=== PATIENT | female | born 1970 | race Caucasian/White ===

== ENCOUNTER → 2016-05-30 | Outpatient (CLI) | payer MEDICARE ==
[2016-05-30 12:41] LABS: ALT 33 U/L (9-52); AST 24 U/L (14-36); Alkaline Phosphatase 121 U/L (38-126); Anion Gap 10 mmol/L; Blood Urea Nitrogen 16 mg/dL (7-17); Calcium 9.4 mg/dL (8.4-10.2); Carbon Dioxide 29 mmol/L (22-30); Chloride 108 mmol/L (98-107); Glucose 98 mg/dL (74-99); Non-African American GFR(MDRD) >60 (>60 ml/min/1.73 sqM); Potassium 5.1 mmol/L (3.5-5.1); Sodium 147 mmol/L (137-145); Total Bilirubin 0.4 mg/dL (0.2-1.3); Total Protein 7.3 g/dL (6.3-8.2)
[2016-05-30 12:57] LABS: Prolactin 6.6 ng/mL (3.0-18.6)
== END | disposition home or self-care (01) ==
LOC: LABWHC1 12:02
PROVIDERS: ATTEND Internal Medicine Endocrinology, Diabetes & Metabolism
DX: E03.8 Other specified hypothyroidism (principal); E21.0 Primary hyperparathyroidism; R53.83 Other fatigue
CPT/HCPCS: 36415; 80053; 82306; 82533; 83970; 84146; 84443

== ENCOUNTER → 2016-05-31 | Outpatient (CLI) | payer MEDICARE | END | disposition home or self-care (01) | LOC: LABWHC1 11:24 | PROVIDERS: ATTEND Internal Medicine Endocrinology, Diabetes & Metabolism | DX: E21.0 Primary hyperparathyroidism (principal); R53.83 Other fatigue; E03.9 Hypothyroidism, unspecified | CPT/HCPCS: 36415; 84439; 84443; 84480 ==

== ENCOUNTER → 2016-07-17 | Outpatient (CLI) | payer MEDICARE ==
[2016-07-17 12:22] LABS: ALT 30 U/L (9-52); AST 25 U/L (14-36); Alkaline Phosphatase 114 U/L (38-126); Anion Gap 10 mmol/L; Blood Urea Nitrogen 16 mg/dL (7-17); Calcium 9.2 mg/dL (8.4-10.2); Carbon Dioxide 29 mmol/L (22-30); Chloride 104 mmol/L (98-107); Glucose 100 mg/dL (74-99); Non-African American GFR(MDRD) >60 (>60 ml/min/1.73 sqM); Sodium 143 mmol/L (137-145); Total Bilirubin 0.7 mg/dL (0.2-1.3); Total Protein 7.5 g/dL (6.3-8.2)
== END | disposition home or self-care (01) ==
LOC: LABWHC1 11:37
PROVIDERS: ATTEND Internal Medicine Endocrinology, Diabetes & Metabolism
DX: E21.0 Primary hyperparathyroidism (principal); E03.9 Hypothyroidism, unspecified
CPT/HCPCS: 36415; 80053; 82306; 83970; 84443

== ENCOUNTER → 2016-08-26 | Outpatient (CLI) | payer MEDICARE ==
[2016-08-26 15:47] LABS: ALT 38 U/L (9-52); AST 37 U/L (14-36); Alkaline Phosphatase 111 U/L (38-126); Anion Gap 12 mmol/L; Blood Urea Nitrogen 13 mg/dL (7-17); Calcium 10.2 mg/dL (8.4-10.2); Carbon Dioxide 27 mmol/L (22-30); Chloride 104 mmol/L (98-107); Glucose 95 mg/dL (74-99); Non-African American GFR(MDRD) >60 (>60 ml/min/1.73 sqM); Potassium 4.9 mmol/L (3.5-5.1); Sodium 143 mmol/L (137-145); Total Bilirubin 0.4 mg/dL (0.2-1.3); Total Protein 7.6 g/dL (6.3-8.2)
== END | disposition home or self-care (01) ==
LOC: LABWHC1 14:51
PROVIDERS: ATTEND Internal Medicine Endocrinology, Diabetes & Metabolism
DX: E21.0 Primary hyperparathyroidism (principal)
CPT/HCPCS: 36415; 80053; 83970

== ENCOUNTER → 2016-09-11 | Outpatient (CLI) | payer MEDICARE ==
[2016-09-11 14:38] LABS: ALT 30 U/L (9-52); AST 28 U/L (14-36); Alkaline Phosphatase 92 U/L (38-126); Anion Gap 9 mmol/L; Blood Urea Nitrogen 14 mg/dL (7-17); Calcium 9.9 mg/dL (8.4-10.2); Carbon Dioxide 31 mmol/L (22-30); Chloride 102 mmol/L (98-107); Glucose 85 mg/dL (74-99); Non-African American GFR(MDRD) >60 (>60 ml/min/1.73 sqM); Potassium 4.6 mmol/L (3.5-5.1); Sodium 142 mmol/L (137-145); Total Bilirubin 0.7 mg/dL (0.2-1.3); Total Protein 7.5 g/dL (6.3-8.2)
== END | disposition home or self-care (01) ==
LOC: LABWHC1 13:56
PROVIDERS: ATTEND Internal Medicine Endocrinology, Diabetes & Metabolism
DX: E21.0 Primary hyperparathyroidism (principal)
CPT/HCPCS: 36415; 80053; 83970

== ENCOUNTER → 2016-10-17 | Outpatient (CLI) | payer MEDICARE ==
[2016-10-17 13:27] LABS: ALT 44 U/L (9-52); AST 28 U/L (14-36); Alkaline Phosphatase 102 U/L (38-126); Anion Gap 12 mmol/L; Blood Urea Nitrogen 18 mg/dL (7-17); Carbon Dioxide 29 mmol/L (22-30); Chloride 102 mmol/L (98-107); Glucose 90 mg/dL (74-99); Non-African American GFR(MDRD) >60 (>60 ml/min/1.73 sqM); Potassium 4.7 mmol/L (3.5-5.1); Sodium 143 mmol/L (137-145); Total Bilirubin 0.7 mg/dL (0.2-1.3); Total Protein 7.6 g/dL (6.3-8.2)
== END | disposition home or self-care (01) ==
LOC: LABWHC1 12:42
PROVIDERS: ATTEND Internal Medicine Endocrinology, Diabetes & Metabolism
DX: E21.0 Primary hyperparathyroidism (principal); R53.83 Other fatigue
CPT/HCPCS: 36415; 80053; 82306; 83970; 84443

== ENCOUNTER → 2016-12-26 | Outpatient (CLI) | payer MEDICARE ==
[2016-12-26 12:22] LABS: Calcium 9.7 mg/dL (8.4-10.2)
== END | disposition home or self-care (01) ==
LOC: LABWHC1 11:17
PROVIDERS: ATTEND Internal Medicine Endocrinology, Diabetes & Metabolism
DX: E21.0 Primary hyperparathyroidism (principal); E03.9 Hypothyroidism, unspecified
CPT/HCPCS: 36415; 82310; 84443

== ENCOUNTER → 2017-02-19 | Outpatient (CLI) | payer MEDICARE | END | disposition home or self-care (01) | LOC: LABWHC1 14:17 | PROVIDERS: ATTEND Family Medicine | DX: E06.3 Autoimmune thyroiditis (principal) | CPT/HCPCS: 36415; 84439 ==

== ENCOUNTER 2017-04-23 17:38 | Emergency (ER) | payer MEDICARE ==
[2017-04-23 17:52] VITALS: RESP 18
--- NOTE | 2017-04-23 18:31 | ED ---
Extremity Problem HPI - General Chief complaint: Extremity Problem,Nontraumatic Stated complaint: Knee pain Time Seen by Provider: 04/23/17 17:56 Source: patient, RN notes reviewed Mode of arrival: ambulatory Limitations: no limitations - History of Present Illness Initial comments: This is a 46-year-old female who presents to the emergency department with chief complaint of right lower extremity pain. Patient states that she had a total right knee replacement in 2012. She states that approximately one week ago she began to develop right posterior thigh pain that she described as feeling like she strained a muscle. Last evening her and her went swimming in a pool. She states that she woke up at approximately 4 AM in excruciating pain. She states that she feels a sharp, shooting pain from her thigh down to her right great toe. Patient denies any specific injuries or trauma to the right leg. She states that she is concerned because she feels like her right knee equipment is loose. She feels like her knee is unstable. Patient also complains that she has right foot pain. She states that the pain is localized to the sole of her foot and she is in excruciating pain with ambulation. Denies any numbness or tingling. Denies any low back pain. Denies fever, chills, chest pain, shortness of breath, abdominal pain, nausea or vomiting, constipation or diarrhea, dysuria or hematuria, headache or vision changes. - Related Data Home Medications Medication Instructions Recorded Confirmed Carisoprodol [Soma] 350 mg PO HS 12/01/15 12/01/15 HYDROcodone/APAP 10-325MG [[place] 1 tab PO BID 12/01/15 12/01/15 10-325] Levothyroxine Sodium [Synthroid] 100 mcg PO DAILY 12/01/15 12/01/15 Meclizine [Antivert] 25 mg PO TID 12/01/15 12/01/15 Allergies Allergy/AdvReac Type Severity Reaction Status Date / Time amitriptyline HCl Allergy Cough Verified 04/23/17 17:46 [From Elavil] cephalexin monohydrate Allergy Rash/Hives Verified 04/23/17 17:46 [From Keflex] erythromycin base Allergy Rash/Hives Verified 04/23/17 17:46 vancomycin Allergy Rash/Hives Verified 04/23/17 17:46 venom-honey bee Allergy Anaphylaxis Verified 04/23/17 17:46 [bee venom (honey bee)] Review of Systems ROS Statement: Those systems with pertinent positive or pertinent negative responses have been documented in the HPI. ROS Other: All systems not noted in ROS Statement are negative. Past Medical History Past Medical History: Thyroid Disorder Additional Past Medical History / Comment(s): hypothyroidism, hyperparathyroidism, vertigo History of Any Multi-Drug Resistant Organisms: None Reported Past Surgical History: Joint Replacement, Orthopedic Surgery Additional Past Surgical History / Comment(s): knee replacements l hip replacement Past Psychological History: Anxiety Smoking Status: Never smoker Past Alcohol Use History: None Reported Past Drug Use History: None Reported General Exam - General Exam Comments Initial Comments: General: Awake and alert, well-developed; in no apparent distress. is at bedside. HEENT: Head atraumatic, normocephalic. Pupils are equal, round and reactive to light. Extraocular movements intact. Oropharynx moist without erythema or exudate. Neck: Supple. Normal ROM. Cardiovascular: Regular rate and rhythm. No murmurs, rubs or gallops. Chest symmetrical. Respiratory: Lungs clear to auscultation bilaterally. No wheezes, rales or rhonchi. Normal respiratory effort with no use of accessory muscles. Musculoskeletal: All over, generalized tenderness on palpation of right foot and right knee. Patient has limited range of motion of the right knee due to pain. Normal active range of motion of right foot. No swelling or erythema noted. Pedal pulses are 2+ equal and palpable bilaterally. No calf tenderness. Negative Homans sign. Skin: [place], warm and dry without rashes or lesions. Neurological: Alert and oriented x3. CN II-XII grossly intact. Speech is fluent and answers are appropriate. No focal neuro deficits. Psychiatric: Normal mood and affect. No overt signs of depression or anxiety noted. Limitations: no limitations Course Vital Signs 04/23/17 17:46 Temperature 97.1 F L Pulse Rate 67 Respiratory 18 Rate Blood Pressure 130/84 O2 Sat by Pulse 100 Oximetry Medical Decision Making - Medical Decision Making This is a 46-year-old female with history of total right knee arthroplasty who presents to the emergency department with chief complaint of right lower extremity pain 1 week. Patient is worried about her right knee prosthesis as it feels "loose." X-ray of the right knee revealed a prosthesis in anatomic position. Right foot x-ray was negative for any acute abnormalities. Based on this patient's complaint of sharp shooting pain down the leg, a lumbar spine x- ray was obtained. X-ray revealed a normal lumbar spine. Patient given Toradol while in the emergency department. She is in no acute distress at this time. She will be discharged home with recommendation to follow-up with her primary care provider in Dr. Brink, who performed her knee surgery. Patient is in agreement with plan and voices understanding. All questions were answered. This case was discussed with attending physician, Dr. Mario. - Radiology Data Radiology results: report reviewed X-ray right knee findings: There is a right knee prosthesis. Components appear in anatomic position. I see no fracture. Impression: No fracture seen. Right foot x-ray findings: Metatarsals appear intact. I see no fracture nor dislocation. Joint spaces are fairly normal. Impression: Negative right foot exam. Lumbar spine x-ray impression: Normal lumbar spine. No change. Disposition Clinical Impression: Pain of right lower extremity Disposition: HOME SELF-CARE Condition: Good Instructions: Leg Pain (ED) Additional Instructions: Please follow up with your primary care provider and Dr. Brink. Return to emergency department if symptoms should worsen or any concerns arise. Referrals: Leodan Ulloa MD [Primary Care Provider] - 1-2 days Time of Disposition: 19:49
--- NOTE | 2017-04-23 18:38 | XR ---
EXAMINATION TYPE: XR foot complete RT DATE OF EXAM: 04/23/2017 COMPARISON: NONE HISTORY: Knee pain. Foot pain. TECHNIQUE: 3 views FINDINGS: Metatarsals appear intact. I see no fracture nor dislocation. Joint spaces are fairly pascale l. IMPRESSION: Negative right foot exam
--- NOTE | 2017-04-23 18:42 | XR ---
EXAMINATION TYPE: XR knee complete RT DATE OF EXAM: 04/23/2017 COMPARISON: NONE HISTORY: Knee pain TECHNIQUE: 3 views FINDINGS: There is a right knee prosthesis. Components appear in anatomic position. I see no fracture . IMPRESSION: No fracture seen.
[2017-04-23] MEDS ORDERED: KETOROLAC 30 MG/ML 1 ML VIAL IM STA (19:03)
--- NOTE | 2017-04-23 19:28 | XR ---
EXAMINATION TYPE: XR lumbosacral spine min 4V DATE OF EXAM: 04/23/2017 COMPARISON: 09/03/2008 HISTORY: Pain TECHNIQUE: 5 views FINDINGS: Lumbar vertebra have normal spacing and alignment. Posterior elements are intact. Sacroilia c joints are normal. IMPRESSION: Normal lumbar spine. No change.
[2017-04-23 19:58] VITALS: BP 140/82; PULSE 88; TEMP 98
== END 2017-04-23 19:58 | disposition home or self-care (01) ==
LOC: EC 17:38
DX: M79.604 Pain in right leg (principal); M79.651 Pain in right thigh; M79.661 Pain in right lower leg; M79.671 Pain in right foot; M79.674 Pain in right toe(s); E03.9 Hypothyroidism, unspecified; Z79.891 Long term (current) use of opiate analgesic; Z79.899 Other long term (current) drug therapy; Z88.1 Allergy status to other antibiotic agents; Z88.8 Allergy status to other drugs, medicaments and biological substances; Z91.030 Bee allergy status; Z86.69 Personal history of other diseases of the nervous system and sense organs; Z96.651 Presence of right artificial knee joint
CPT/HCPCS: 72110; 73562; 73630; 99283; 96372; J1885

== ENCOUNTER → 2017-06-05 | Outpatient (CLI) | payer MEDICARE ==
[2017-06-05 14:32] LABS: ALT 37 U/L (9-52); AST 30 U/L (14-36); Albumin 4.3 g/dL (3.5-5.0); Alkaline Phosphatase 97 U/L (38-126); Anion Gap 10 mmol/L; Blood Urea Nitrogen 14 mg/dL (7-17); Calcium 10.1 mg/dL (8.4-10.2); Carbon Dioxide 32 mmol/L (22-30); Chloride 101 mmol/L (98-107); Glucose 87 mg/dL (74-99); Potassium 4.4 mmol/L (3.5-5.1); Sodium 143 mmol/L (137-145); Total Bilirubin 0.5 mg/dL (0.2-1.3); Total Protein 7.1 g/dL (6.3-8.2)
[2017-06-05 19:33] LABS: Parathyroid Hormone Intact 36.5 pg/mL (14.0-72.0)
== END | disposition home or self-care (01) ==
LOC: LABWHC1 13:54
PROVIDERS: ATTEND Internal Medicine Endocrinology, Diabetes & Metabolism
DX: E03.8 Other specified hypothyroidism (principal)
CPT/HCPCS: 36415; 80053; 82306; 83970; 84443

== ENCOUNTER → 2017-07-10 | Outpatient (CLI) | payer MEDICARE | END | disposition home or self-care (01) | LOC: LABWHC1 09:31 | PROVIDERS: ATTEND Family Medicine | DX: E21.3 Hyperparathyroidism, unspecified (principal) | CPT/HCPCS: 36415; 82310 ==

== ENCOUNTER 2017-08-05 13:55 | Emergency (ER) | payer OTHER, MEDICARE ==
[2017-08-05 14:37] VITALS: RESP 18; TEMP 96.9
[2017-08-05] MEDS ORDERED: KETOROLAC 30 MG/ML 1 ML VIAL IM STA (14:58)
[2017-08-05] MEDS ORDERED: MORPHINE SULFATE 4 MG/ML SYRINGE IM STA (15:23)
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
--- NOTE | 2017-08-05 15:51 | CT ---
EXAMINATION TYPE: CT lumbar spine wo con DATE OF EXAM: 08/05/2017 COMPARISON: Radiographs 04/23/2017 HISTORY: 47-year-old female complains of lower back spasms/pain. TECHNIQUE: Contiguous axial scanning of the lumbar spine without IV contrast. Coronal and sagittal re constructions performed. CT DLP: 994 mGycm Automated exposure control for dose reduction was used. FINDINGS: Vertebral body heights are preserved and alignment is maintained. There are bulging discs from L3 through S1 levels. Superimposed left intraforaminal disc protrusion a t L5-S1 causes mild left neural foraminal stenosis. Bulging disc causes minimal inferior foraminal narrowing on the left. Significant spinal canal stenosis identified by CT. No acute fracture of the lumbar spine. Disc interspaces are relatively maintained. No prevertebral or paravertebral soft tissue abnormality seen. IMPRESSION: 1. BULGING DISCS FROM L3 THROUGH S1 LEVELS. THIS CAUSES MINIMAL NEURAL FORAMINAL NARROWING ON THE LEF T AT L4-L5 AND MILD ON THE LEFT AT L5-S1. 2. NO LARGE FOCAL DISC HERNIATION OR SIGNIFICANT SPINAL CANAL STENOSIS.
--- NOTE | 2017-08-05 15:55 | XR ---
EXAMINATION TYPE: XR lumbar spine 2 or 3V DATE OF EXAM: 08/05/2017 CLINICAL HISTORY: Strain injury with pain. TECHNIQUE: Frontal and lateral images of the lumbar spine are obtained. COMPARISON: Same day CT. Lumbar spine x-ray April 23, 2017. FINDINGS: There are 5 lumbar type vertebral bodies identified. The lumbar spine shows satisfactory alignment without evidence of acute fracture or dislocation. Vertebral body heights and disk space he ights are within normal limits. No significant spurring is seen. The overlying soft tissue appears u nremarkable. IMPRESSION: No acute fracture or dislocation is seen in the lumbar spine.
[2017-08-05 16:47] VITALS: BP 111/72; PULSE 72
[2017-08-05 17:03] LABS: Appearance,Urine Clear (Clear); Bilirubin,Urine Negative (Negative); Blood,Urine Negative (Negative); Color,Urine Light Yellow; Glucose,Urine (UA) Negative (Negative); Ketones,Urine Negative (Negative); Leukocyte Esterase,Urine Negative (Negative); Nitrite,Urine Negative (Negative); Protein,Urine Negative (Negative); Specific Gravity,Urine 1.007 (1.001-1.035); Urobilinogen,Urine <2.0 mg/dL (<2.0)
== END 2017-08-05 17:19 | disposition home or self-care (01) ==
LOC: EC 13:55
DX: M54.5 Low back pain (principal); G89.29 Other chronic pain; M43.16 Spondylolisthesis, lumbar region; E03.9 Hypothyroidism, unspecified; Z96.659 Presence of unspecified artificial knee joint; Z96.649 Presence of unspecified artificial hip joint; Z79.891 Long term (current) use of opiate analgesic; Z79.899 Other long term (current) drug therapy; Z88.8 Allergy status to other drugs, medicaments and biological substances; Z88.1 Allergy status to other antibiotic agents; Z91.030 Bee allergy status; Z53.29 Procedure and treatment not carried out because of patient's decision for other reasons
CPT/HCPCS: 81003; 72100; 72131; 99284; 96372 ×2; J2270; J1885

== ENCOUNTER → 2017-09-04 | Outpatient (CLI) | payer OTHER ==
[2017-09-04 13:30] LABS: Basophils # (A) 0.1 k/uL (0-0.2); Basophils % (A) 1 %; Eosinophils # (A) 0.2 k/uL (0-0.7); Eosinophils % (A) 2 %; HCT 42.9 % (34.0-46.0); HGB 14.1 gm/dL (11.4-16.0); Lymphocytes # (A) 2.3 k/uL (1.0-4.8); Lymphocytes % (A) 36 %; MCH 28.4 pg (25.0-35.0); MCHC 32.9 g/dL (31.0-37.0); MCV 86.4 fL (80.0-100.0); Mean Platelet Volume 7.7; Monocytes # (A) 0.4 k/uL (0-1.0); Monocytes % (A) 7 %; Neutrophils # (A) 3.4 k/uL (1.3-7.7); Neutrophils % (A) 52 %; Platelet Count 278 k/uL (150-450); RBC 4.96 m/uL (3.80-5.40); RDW 12.7 % (11.5-15.5); WBC 6.5 k/uL (3.8-10.6)
[2017-09-04 14:44] LABS: Erythrocyte Sedimentation Rate 4 mm/hr (0-20)
== END | disposition home or self-care (01) ==
LOC: LABWHC1 12:07
PROVIDERS: ATTEND Orthopaedic Surgery
DX: E03.9 Hypothyroidism, unspecified (principal); B99.9 Unspecified infectious disease
CPT/HCPCS: 36415; 85025; 85652; 86140

== ENCOUNTER → 2017-09-04 | Outpatient (CLI) | payer MEDICARE ==
--- NOTE | 2017-09-04 13:49 | MM ---
Reason for exam: screening (asymptomatic). Baseline mammogram. History: Patient is postmenopausal. Physical Findings: Nurse did not find any significant physical abnormalities on exam. MG 3D Screening Mammo W/Cad Bilateral CC, MLO, and XCCL view(s) were taken. The breast tissue is heterogeneously dense. This may lower the sensitivity of mammography. No suspicious abnormality. These results were verbally communicated with the patient and result sheet given to the patient on 09/04/17. ASSESSMENT: Negative, BI-RAD 1 RECOMMENDATION: Routine screening mammogram of both breasts in 1 year.
== END | disposition home or self-care (01) ==
LOC: RADMAMWWP 12:26
PROVIDERS: ATTEND Family Medicine
DX: Z12.31 Encounter for screening mammogram for malignant neoplasm of breast (principal); E03.9 Hypothyroidism, unspecified
CPT/HCPCS: 77063; 77067; 82310

== ENCOUNTER → 2017-10-06 | Outpatient (CLI) | payer MEDICARE ==
--- NOTE | 2017-10-06 11:38 | US ---
EXAMINATION TYPE: US kidneys/renal and bladder DATE OF EXAM: 10/06/2017 COMPARISON: NONE CLINICAL HISTORY: 47-year-old female E21.0 Hyperparathyroidism,E83.52 Hypercalcemia. Hematuria, incre ased urgency TECHNIQUE: Multiple sonographic images of the kidneys and bladder are obtained. FINDINGS: EXAM MEASUREMENTS: Right Kidney: 9.6 x 3.9 x 4.5 cm Left Kidney: 10.3 x 4.8 x 4.4 cm No hydronephrosis on either side. No gross abnormality of the bladder.Bilateral Jets seen: left only seen. IMPRESSION: No hydronephrosis. Incidentally, only the left ureteral jet is seen.
== END | disposition home or self-care (01) ==
LOC: RADUSWWP 09:49
PROVIDERS: ATTEND Internal Medicine Endocrinology, Diabetes & Metabolism
DX: E21.0 Primary hyperparathyroidism (principal)
CPT/HCPCS: 76770

== ENCOUNTER → 2017-10-20 | Outpatient (CLI) | payer MEDICARE ==
[2017-10-20 12:11] LABS: ALT 48 U/L (9-52); AST 29 U/L (14-36); Albumin 4.5 g/dL (3.5-5.0); Alkaline Phosphatase 111 U/L (38-126); Anion Gap 7 mmol/L; Blood Urea Nitrogen 19 mg/dL (7-17); Calcium 9.7 mg/dL (8.4-10.2); Carbon Dioxide 28 mmol/L (22-30); Chloride 105 mmol/L (98-107); Glucose 93 mg/dL (74-99); Potassium 4.8 mmol/L (3.5-5.1); Sodium 140 mmol/L (137-145); Total Bilirubin 0.6 mg/dL (0.2-1.3); Total Protein 7.5 g/dL (6.3-8.2)
[2017-10-20 16:46] LABS: Parathyroid Hormone Intact 76.6 pg/mL (14.0-72.0)
== END | disposition home or self-care (01) ==
LOC: LABWHC1 11:00
PROVIDERS: ATTEND Internal Medicine Endocrinology, Diabetes & Metabolism
DX: E03.8 Other specified hypothyroidism (principal); E21.0 Primary hyperparathyroidism
CPT/HCPCS: 36415; 80053; 82306; 83970; 84443

== ENCOUNTER → 2017-10-24 | Outpatient (CLI) | payer MEDICARE ==
--- NOTE | 2017-10-27 09:22 | CT ---
EXAMINATION TYPE: CT abdomen wo/w con DATE OF EXAM: 10/24/2017 COMPARISON: Ultrasound 17-18 HISTORY: Right flank pain, urgency with uriantion, difficult and painful urination. Some hematuria. CT DLP: 532.7 mGycm CONTRAST: CT scan of the abdomen and pelvis is performed without and with with Oral Contrast and without and wi th IV Contrast, patient injected with 100 mL of Isovue 300. FINDINGS: LUNG BASES-: No visible nodule. No infiltrate. Pectus excavatum deformity of the chest. LIVER/GB: No calcified gallstones. No space occupying hepatic lesion. Biliary tree is of normal ca liber. PANCREAS: No inflammation. No distinct mass. SPLEEN: No splenic enlargement. No lesion seen. ADRENALS: No nodule. No thickening. KIDNEYS/BLADDER: No hydronephrosis. No nephrolithiasis. No distinct renal mass. Urinary bladder g rossly unremarkable. BOWEL: Normal appendix. Normal bowel caliber. No inflammation. LYMPH NODES: No greater than 1cm abdominal or pelvic lymph nodes are appreciated. AORTA: No significant abnormality. OSSEOUS STRUCTURES: No significant abnormality is seen. OTHER: No significant additional abnormality is seen. IMPRESSION: 1. No evidence for nephrolithiasis, hydronephrosis or renal mass. 2. Mild fatty liver.
== END | disposition home or self-care (01) ==
LOC: RADCTMAIN 16:55
PROVIDERS: ATTEND Internal Medicine Endocrinology, Diabetes & Metabolism
DX: K76.0 Fatty (change of) liver, not elsewhere classified (principal)
CPT/HCPCS: 74170; Q9967

== ENCOUNTER 2017-11-07 20:20 | Emergency (ER) | payer MEDICARE ==
[2017-11-07] MEDS ORDERED: FAMOTIDINE 20 MG TAB PO STA (21:12)
[2017-11-07] MEDS ORDERED: diphenhydrAMINE 50 MG CAP PO STA (21:12)
[2017-11-07] MEDS ORDERED: predniSONE 20 MG TAB PO STA (21:12)
--- NOTE | 2017-11-07 21:21 | ED ---
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 Patient states this occurred around 8 PM tonight, when she picked up a piece of wood at her home. Patient states the stings occurred to the forearm. She states she has never been stung by yellow jacket before he is not certain if she would have a reaction to it. She does feel like she is having some itching to the throat, but she denies any dyspnea, difficulty in swallowing , or change in her voice. She believes that her last tetanus shot was definitely less than 5 years ago. MD Complaint: other Onset/Timin -: hour(s) Exposure: insect bite Symptoms: itching Severity: mild Treatment Prior to Arrival: none Previous Allergy History: prior ED visit(s), anaphylaxis - Related Data Home Medications Medication Instructions Recorded Confirmed Diazepam [Valium] 5 mg PO TID 11/07/17 11/07/17 Levothyroxine Sodium [Synthroid] 88 mcg PO DAILY 11/07/17 11/07/17 Lidocaine 5% Patch [Lidoderm] 1 patch TOPICAL DAILY PRN 11/07/17 11/07/17 oxyCODONE-APAP 10-325MG [Percocet 1 tab PO Q6HR 11/07/17 11/07/17 10-325 mg] Previous Rx's Medication Instructions Recorded Famotidine [Pepcid] 20 mg PO BID #14 tablet 11/07/17 predniSONE 60 mg PO DAILY #30 tab 11/07/17 Allergies Allergy/AdvReac Type Severity Reaction Status Date / Time amitriptyline HCl Allergy Cough Verified 11/07/17 20:40 [From Elavil] cephalexin monohydrate Allergy Rash/Hives Verified 11/07/17 20:40 [From Keflex] erythromycin base Allergy Rash/Hives Verified 11/07/17 20:40 vancomycin Allergy Rash/Hives Verified 11/07/17 20:40 venom-honey bee Allergy Anaphylaxis Verified 11/07/17 20:40 [bee venom (honey bee)] Review of Systems ROS Statement: Those systems with pertinent positive or pertinent negative responses have been documented in the HPI. ROS Other: All systems not noted in ROS Statement are negative. Constitutional: Denies: fever ENT: Denies: throat pain, congestion Respiratory: Denies: cough, dyspnea, wheezes Cardiovascular: Denies: palpitations, syncope Gastrointestinal: Denies: abdominal pain, vomiting, diarrhea Skin: Reports: as per HPI, other (Stating) Past Medical History Past Medical History: Thyroid Disorder Additional Past Medical History / Comment(s): hypothyroidism, hyperparathyroidism, vertigo History of Any Multi-Drug Resistant Organisms: None Reported Past Surgical History: Joint Replacement, Orthopedic Surgery Additional Past Surgical History / Comment(s): knee replacements l hip replacement Past Psychological History: Anxiety Smoking Status: Never smoker Past Alcohol Use History: None Reported Past Drug Use History: None Reported General Exam Limitations: no limitations General appearance: alert, in no apparent distress ENT exam: Present: normal oropharynx, mucous membranes moist Respiratory exam: Present: normal lung sounds bilaterally. Absent: respiratory distress, wheezes, rales, rhonchi, stridor Cardiovascular Exam: Present: regular rate, normal rhythm, normal heart sounds. Absent: systolic murmur, diastolic murmur, rubs, gallop Skin exam: Present: warm, dry, intact, normal color, other (Inspection of patient's left forearm does reveal 2 small wheals. There does not appear to be any retained foreign body in the skin.) Course Vital Signs 11/07/17 20:25 Temperature 98.3 F Pulse Rate 99 Respiratory 18 Rate Blood Pressure 151/87 O2 Sat by Pulse 100 Oximetry Disposition Clinical Impression: Insect sting Disposition: HOME SELF-CARE Condition: Good Instructions: Insect Bite or Sting (ED) Prescriptions: Famotidine [Pepcid] 20 mg PO BID #14 tablet predniSONE 60 mg PO DAILY #30 tab Is patient prescribed a controlled substance at d/c from ED?: No Referrals: Leodan Ulloa MD [Primary Care Provider] - 1-2 days
[2017-11-07 22:29] VITALS: BP 127/67; PULSE 68; RESP 17; TEMP 98.1
== END 2017-11-07 22:28 | disposition home or self-care (01) ==
LOC: EC 20:20
DX: S50.862A Insect bite (nonvenomous) of left forearm, initial encounter (principal); E03.9 Hypothyroidism, unspecified; F41.9 Anxiety disorder, unspecified; Z79.891 Long term (current) use of opiate analgesic; Z79.899 Other long term (current) drug therapy; Z88.1 Allergy status to other antibiotic agents; Z91.030 Bee allergy status; Z88.8 Allergy status to other drugs, medicaments and biological substances; Z96.653 Presence of artificial knee joint, bilateral; Z96.642 Presence of left artificial hip joint; W57.XXXA Bitten or stung by nonvenomous insect and other nonvenomous arthropods, initial encounter; Y92.009 Unspecified place in unspecified non-institutional (private) residence as the place of occurrence of the external cause
CPT/HCPCS: 99283; J7512

== ENCOUNTER → 2018-01-20 | Outpatient (CLI) | payer MEDICARE | END | disposition home or self-care (01) | LOC: LABWHC1 15:28 | PROVIDERS: ATTEND Family Medicine | DX: E21.2 Other hyperparathyroidism (principal) | CPT/HCPCS: 36415; 82310 ==

== ENCOUNTER → 2018-01-20 | Outpatient (CLI) | payer OTHER ==
[2018-01-20 16:34] LABS: Basophils # (A) 0.1 k/uL (0-0.2); Basophils % (A) 1 %; Eosinophils # (A) 0.2 k/uL (0-0.7); Eosinophils % (A) 3 %; HCT 41.6 % (34.0-46.0); HGB 13.6 gm/dL (11.4-16.0); Lymphocytes % (A) 46 %; MCH 29.1 pg (25.0-35.0); MCHC 32.8 g/dL (31.0-37.0); MCV 88.8 fL (80.0-100.0); Mean Platelet Volume 7.9; Monocytes # (A) 0.4 k/uL (0-1.0); Monocytes % (A) 6 %; Neutrophils # (A) 2.8 k/uL (1.3-7.7); Neutrophils % (A) 43 %; Platelet Count 234 k/uL (150-450); RBC 4.68 m/uL (3.80-5.40); RDW 12.8 % (11.5-15.5); WBC 6.6 k/uL (3.8-10.6)
[2018-01-20 19:19] LABS: Erythrocyte Sedimentation Rate 3 mm/hr (0-20)
== END | disposition home or self-care (01) ==
LOC: LABWHC1 15:35
PROVIDERS: ATTEND Orthopaedic Surgery
DX: M25.361 Other instability, right knee (principal)
CPT/HCPCS: 36415; 85025; 85652; 86140

== ENCOUNTER → 2018-01-28 | Outpatient (CLI) | payer MEDICARE ==
[2018-01-29 02:35] LABS: Albumin 4.4 g/dL (3.80-4.90); Calcium 10.2 mg/dL (8.7-10.3); Globulin 2.2 g/dL (2.1-3.7); Potassium 4.5 mmol/L (3.5-5.5); Total Bilirubin 0.4 mg/dL (0.2-1.2); Total Protein 6.6 g/dL (6.2-8.2)
== END | disposition home or self-care (01) ==
LOC: LABWHC1 15:05
PROVIDERS: ATTEND Internal Medicine Endocrinology, Diabetes & Metabolism
DX: E03.8 Other specified hypothyroidism (principal); E83.52 Hypercalcemia
CPT/HCPCS: 36415; 80053

== ENCOUNTER → 2018-05-26 | Outpatient (CLI) | payer MEDICARE ==
[2018-05-26 21:09] LABS: Albumin 4.4 g/dL (3.80-4.90); Albumin/Globulin Ratio 2.1 (1.60-3.17); Calcium 9.8 mg/dL (8.7-10.3); Globulin 2.1 g/dL (1.6-3.3); Potassium 4.8 mmol/L (3.5-5.5); Total Bilirubin 0.3 mg/dL (0.2-1.2); Total Protein 6.5 g/dL (6.2-8.2)
== END ==
LOC: LABWHC1 12:05
PROVIDERS: ATTEND Internal Medicine Endocrinology, Diabetes & Metabolism
DX: E03.8 Other specified hypothyroidism (principal); E21.0 Primary hyperparathyroidism
CPT/HCPCS: 36415; 80053; 82306; 83970; 84443

== ENCOUNTER → 2018-05-28 | Outpatient (CLI) | payer MEDICARE ==
--- NOTE | 2018-05-28 15:26 | US ---
EXAMINATION TYPE: US kidneys/renal and bladder DATE OF EXAM: 05/28/2018 COMPARISON: 10/06/2017 CLINICAL HISTORY: 47-year-old female Left flank pain R10.9. Left flank pain x 2 weeks, hematuria, uri nary urgency TECHNIQUE: Multiple sonographic images of the kidneys and bladder are obtained. FINDINGS: EXAM MEASUREMENTS: Right Kidney: 9.3 x 4.2 x 4.0 cm Left Kidney: 9.4 x 4.5 x 4.8 cm No hydronephrosis on either side. Bladder: wnl Bilateral Jets seen: yes IMPRESSION: No hydronephrosis.
== END ==
LOC: RADUSWWP 14:24
PROVIDERS: ATTEND Family Medicine
DX: R10.9 Unspecified abdominal pain (principal)
CPT/HCPCS: 76770

== ENCOUNTER → 2018-07-06 | Outpatient (CLI) | payer OTHER ==
--- NOTE | 2018-07-06 22:21 | MR ---
EXAMINATION TYPE: MR lumbar spine wo con DATE OF EXAM: 07/06/2018 COMPARISON: None HISTORY: LBP, LLE radic x 10 years CONTRAST: 0 mL intravenous Gadavist. TECHNIQUE: Multiplanar, multisequence images of the lumbar spine were acquired. FINDINGS: No focal disc herniations or significant disc bulges are evident. No spinal canal stenosis or neural foraminal stenosis is present. There is some increased signal along the posterior mid aspect of the L4-5 disc level may be an annula r tear. Neural foramen are patent. Minimal disc desiccation is present L3-4, L4-5, L5-S1. Cord terminates at the L1 level. IMPRESSION: 1. There may be an annular tear L4-5 without disc herniation or significant disc bulge. 2. No suspicious etiology to account for left lower extremity pain.
== END | disposition home or self-care (01) ==
LOC: RADMRIMAIN 21:45
PROVIDERS: ATTEND Orthopaedic Surgery Orthopaedic Surgery of the Spine
DX: M54.5 Low back pain (principal)
CPT/HCPCS: 72148

== ENCOUNTER → 2018-12-29 | Outpatient (CLI) | payer MEDICARE ==
--- NOTE | 2018-12-29 14:07 | NM ---
EXAMINATION TYPE: NM parathyroid w/spect DATE OF EXAM: 12/29/2018 COMPARISON: Parathyroid SPECT dated 09/20/2015 HISTORY: E 21.3 TECHNIQUE: Following administration of 25.1 mCi Tc99m Sestamibi. Anterior projection images of the neck and ches t were obtained 10 minutes and 3 hours post injection. SPECT images of the neck and chest were obtai stacey and reconstructed in three axes. FINDINGS: Thyroid tracer washout: Delayed images demonstrate suboptimal tracer washout from the thyroid. Parathyroid uptake: None. The two-hour delayed images do not demonstrate any focal abnormal persisten t uptake in the region of the parathyroid glands to suggest parathyroid adenoma. Normal uptake: There is physiological tracer uptake in the myocardium, liver, salivary glands, and th yroid gland. IMPRESSION: No evidence for mediastinal uptake to suggest mediastinal parathyroid adenoma although there is subop timal washout of radiotracer from the thyroid gland.
== END | disposition home or self-care (01) ==
LOC: RADNMMAIN 07:41
PROVIDERS: ATTEND Family Medicine
DX: E21.3 Hyperparathyroidism, unspecified (principal)
CPT/HCPCS: 78071; A9500

== ENCOUNTER → 2018-12-29 | Outpatient (CLI) | payer MEDICARE ==
[2018-12-29 17:37] LABS: Vitamin D 25 Hydroxy 65.3 ng/mL (30.0-100.0)
== END | disposition home or self-care (01) ==
LOC: LABWHC1 10:17
PROVIDERS: ATTEND Surgery
DX: E21.0 Primary hyperparathyroidism (principal)
CPT/HCPCS: 36415; 82306; 82310; 83970

== ENCOUNTER 2019-12-06 11:06 | Inpatient (IN) | payer OTHER, MEDICARE ==
[2019-12-06] MEDS ORDERED: ONDANSETRON 4 MG/2 ML VIAL IVP PRN (14:32)
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
[2019-12-06] MEDS: SODIUM CHLORIDE 0.9% 1,000 ML IV SCH (15:20)
[2019-12-06 15:46] LABS: HGB 13.2 gm/dL (11.4-16.0); MCH 28.6 pg (25.0-35.0); MCHC 32.3 g/dL (31.0-37.0); MCV 88.6 fL (80.0-100.0); Mean Platelet Volume 8.3; Platelet Count 256 k/uL (150-450); RBC 4.63 m/uL (3.80-5.40); RDW 12.6 % (11.5-15.5); WBC 9.3 k/uL (3.8-10.6)
[2019-12-06 15:54] LABS: ALT 20 U/L (4-34); AST 27 U/L (14-36); African American GFR (CKD) >90 (>60 ml/min/1.73 sqM); Albumin 4.6 g/dL (3.5-5.0); Alkaline Phosphatase 96 U/L (38-126); Anion Gap 6 mmol/L; Blood Urea Nitrogen 9 mg/dL (7-17); Calcium 9.6 mg/dL (8.4-10.2); Carbon Dioxide 29 mmol/L (22-30); Chloride 105 mmol/L (98-107); Glucose 99 mg/dL (74-99); Non-African American GFR(CKD) >90 (>60 ml/min/1.73 sqM); Potassium 4.5 mmol/L (3.5-5.1); Sodium 140 mmol/L (137-145); Total Bilirubin 0.7 mg/dL (0.2-1.3); Total Protein 7.2 g/dL (6.3-8.2)
[2019-12-06] MEDS ORDERED: LIDOCAINE 5% PATCH TOPICAL PRN (16:16)
[2019-12-06] MEDS ORDERED: THYROID, PORK 30 MG TAB PO SCH (16:30)
[2019-12-06] MEDS: PANTOPRAZOLE 40 MG/10 ML VIAL IVP SCH (18:20)
[2019-12-06] MEDS: oxyCODONE-APAP 7.5-325MG 1 EACH TAB PO PRN (20:10)
[2019-12-06] MEDS: diazePAM 5 MG TAB PO SCH (22:11)
[2019-12-07] MEDS: PANTOPRAZOLE 40 MG/10 ML VIAL IVP SCH (09:10)
[2019-12-07] MEDS: SODIUM CHLORIDE 0.9% 1,000 ML IV SCH ×2 (09:11→16:57)
[2019-12-07] MEDS: THYROID, PORK 30 MG TAB PO SCH (09:12)
[2019-12-07] MEDS: diazePAM 5 MG TAB PO SCH ×2 (09:12→20:52)
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
--- NOTE | 2019-12-07 10:38 | P.PN ---
Subjective Progress Note Date: 12/07/19 CHIEF COMPLAINT: Right colon mass HISTORY OF PRESENT ILLNESS: This is a 29-year-old female who underwent initial screening colonoscopy today. Patient's colonoscopy was done at an outside endoscopy clinic in the city. Patient and family history of colon cancer with her father having colon cancer. Patient's found to have a villous or 0.5 cm lesion of the right colon. Patient's had some rectal bleeding since her colonoscopy. She denies any pain. CEA is negative. Patient is afebrile PHYSICAL EXAM: VITAL SIGNS: Reviewed. GENERAL: Well-developed in no acute distress. HEENT: No sclera icterus. Extraocular movements grossly intact. Moist buccal mucosa. Head is atraumatic, normocephalic. ABDOMEN: Soft. Nondistended. Nontender. NEUROLOGIC: Alert and oriented. Cranial nerves II through XII grossly intact. ASSESSMENT: 1. Recently diagnosed right colon mass on colonoscopy PLAN: -Patient is scheduled for laparoscopic right colectomy with Dr. Lantigua today Physician Wireless Sales Manager note has been reviewed by physician. Signing provider agrees with the documented findings, assessment, and plan of care. Objective - Vital Signs Vital signs: Vital Signs Temp 98.3 F 12/07/19 08:20 Pulse 66 12/07/19 08:20 Resp 16 12/07/19 08:20 BP 105/67 12/07/19 08:20 Pulse Ox 97 12/07/19 08:20 Intake & Output 12/06/19 12/07/19 12/07/19 18:59 06:59 18:59 Output Total 450 Balance -450 Weight 68.946 kg Output: Urine 450 Other: Voiding Method Toilet # Voids 1 - Labs CBC & Chem 7: 12/06/19 15:35 12/06/19 15:35
[2019-12-07] MEDS ORDERED: IV FLUID CONTINUATION 1,000 ML IV ONE (10:52)
[2019-12-07] MEDS ORDERED: HEPARIN SODIUM,PORCINE 5,000 UNIT/ML 1 ML VIAL SQ ONE (12:10)
[2019-12-07] MEDS ORDERED: HEPARIN SODIUM,PORCINE 5,000 UNIT/ML 1 ML VIAL ONE ×2 (12:10→12:11)
[2019-12-07] MEDS ORDERED: DEXAMETHASONE SOD PHOSPHATE 10 MG/ML 1 ML VIAL ONE (12:11)
[2019-12-07] MEDS ORDERED: MIDAZOLAM 2 MG/2 ML VIAL ONE (12:11)
[2019-12-07] MEDS ORDERED: PROPOFOL 10 MG/ML 20 ML VIAL IV ONE (12:11)
[2019-12-07] MEDS ORDERED: SUCCINYLCHOLINE CHLORIDE 100 MG/5 ML SYR IV ONE (12:11)
[2019-12-07] MEDS ORDERED: diphenhydrAMINE 50 MG/ML 1 ML VIAL ONE (12:11)
[2019-12-07] MEDS ORDERED: KETAMINE 10 MG/ML 20 ML VIAL ONE (12:11)
[2019-12-07] MEDS ORDERED: GLYCOPYRROLATE 0.2 MG/ML 2 ML VIAL ONE (12:11)
[2019-12-07] MEDS ORDERED: HYDROmorphone (PF) 1 MG/ML ONE (12:11)
[2019-12-07] MEDS ORDERED: fentaNYL (PF) 50 MCG/ML 2 ML AMP ONE (12:11)
[2019-12-07] MEDS ORDERED: ROCURONIUM BROMIDE 10 MG/ML 5 ML VIAL IV ONE (12:11)
[2019-12-07] MEDS ORDERED: ONDANSETRON 4 MG/2 ML VIAL ONE (12:11)
[2019-12-07] MEDS ORDERED: LIDOCAINE 1% INJ 10MG/ML (20 ML MDV) ONE (12:11)
[2019-12-07] MEDS ORDERED: NEOSTIGMINE 1 MG/ML 10 ML VIAL ONE (12:11)
[2019-12-07] MEDS ORDERED: CLINDAMYCIN 900 MG in DEXTROSE 5% IN WATER 50 ML IVPB STA ×2 (12:20)
[2019-12-07] MEDS ORDERED: metroNIDAZOLE-NS PMX 500 MG in SALINE 1 100ML.BAG IVPB STA (12:20)
[2019-12-07] MEDS ORDERED: SODIUM CHLORIDE 0.9% 100 ML with ceFAZolin 2,000 MG IV ONE ×2 (12:21)
[2019-12-07] MEDS ORDERED: LACTATED RINGERS 1,000 ML IV ONE (12:25)
[2019-12-07] MEDS ORDERED: BUPIVACAINE (PF) 0.5% 30 ML VIAL SQ ONE (12:30)
--- NOTE | 2019-12-07 13:35 | P.OP ---
Date of Procedure: 12/07/19 Preoperative Diagnosis: Right colon mass Postoperative Diagnosis: Right colon mass Procedure(s) Performed: Laparoscopic right colectomy Repair of incisional hernia Anesthesia: FELICIANOA Surgeon: Luis A Lantigua Estimated Blood Loss (ml): 10 Pathology: other (Right colon) Condition: stable Disposition: PACU Description of Procedure: The patient's placed on the operative table in the supine position. She received MAC. Her abdomen was prepped and draped usual sterile fashion. An i nfraumbilical skin incision was made then using a pair of Fatou clamps the fascia was grasped and a Veress needles placed. Cavity. Position of the Veress needle was confirmed with positive drop test. The abdomen was then insufflated. After adequate insufflation the 5 ohmmeter trocar is placed. Cavity. Next the laparoscope with panel cavity. Another 5 mm trocar is placed in the epigastric and suprapubic position. The right colon was visualized. The patient had previously undergone colonoscopy by different endoscopies. There was no tattoo robby of the right colon where the mass was located. This point the right colon was mobilized by dividing the white line of Toldt's. The attachments to the terminal ileum were also divided. Once the right colon was fully mobilized and hepatic flexures mobilized. Withdrawn. The skin incision was lengthened at the umbilicus. There was a small incisional hernia located just above the umbilicus. And the colon was brought up into the wound. The colon was digitally palpated and the colonic tumors found approximately 10 cm from the ileocecal valve. At this point decided to perform a [id number] functional end-to-end staple anastomosis between the terminal ileum and ascending colon. The colon was transected with a GI stapler then using the Enseal device the mesentery the bowel was divided. The specimens of pathology. The stapler ve ssels then created using LIN and TA stapler between the terminal ileum and the ascending colon. 3-0 GI silk suture was using a crotch stitch. There is no plane seen. The fascia was closed with #1 Ethibond suture. The incisional hernias repaired during fascial closure. Skin was closed interrupted 3-0 Monocryl suture. Patient top she will well she was sent to recovery room stable condition.
[2019-12-07] MEDS: HYDROmorphone 1 MG/ML 1 ML SYRINGE IVP ONE ×4 (13:50→14:20)
[2019-12-07] MEDS ORDERED: diphenhydrAMINE 50 MG/ML 1 ML VIAL IVP ONE (14:05)
[2019-12-07] MEDS ORDERED: ONDANSETRON 4 MG/2 ML VIAL IVP ONE (14:05)
[2019-12-07] MEDS ORDERED: fentaNYL (PF) 50 MCG/ML 2 ML AMP IVP ONE (14:40)
[2019-12-07] MEDS ORDERED: BENZOCAINE/MENTHOL LOZENG 1 EACH LOZENGE MUCOUS MEM PRN (15:25)
[2019-12-07] MEDS ORDERED: METOCLOPRAMIDE 5 MG/ML 2 ML VIAL IVP PRN (15:25)
[2019-12-07] MEDS: HYDROmorphone 0.5 MG/0.5 ML SYRINGE IVP PRN ×2 (16:45→22:24)
[2019-12-07] MEDS: D5-0.45% NACL WITH KCL 20MEQ/L 1,000 ML IV SCH ×2 (16:56→23:24)
[2019-12-07] MEDS: ALVIMOPAN 12 MG CAPSULE PO SCH (20:52)
[2019-12-07] MEDS: KETOROLAC 15 MG/ML 1 ML VIAL IVP PRN (20:52)
[2019-12-08] MEDS: SODIUM CHLORIDE 0.9% 1,000 ML IV SCH ×2 (05:30→21:56)
[2019-12-08] MEDS: HYDROmorphone 0.5 MG/0.5 ML SYRINGE IVP PRN (06:16)
[2019-12-08] MEDS: THYROID, PORK 30 MG TAB PO SCH (07:45)
[2019-12-08] MEDS: diazePAM 5 MG TAB PO SCH ×2 (07:46→19:36)
[2019-12-08] MEDS: D5-0.45% NACL WITH KCL 20MEQ/L 1,000 ML IV SCH ×3 (07:46→22:55)
[2019-12-08] MEDS: ALVIMOPAN 12 MG CAPSULE PO SCH ×2 (07:46→19:36)
[2019-12-08] MEDS: PANTOPRAZOLE 40 MG/10 ML VIAL IVP SCH (07:46)
[2019-12-08] MEDS: KETOROLAC 15 MG/ML 1 ML VIAL IVP PRN ×2 (08:00→16:49)
[2019-12-08] MEDS: HYDROmorphone 1 MG/ML 1 ML SYRINGE IVP PRN ×4 (11:31→21:44)
--- NOTE | 2019-12-08 14:39 | P.PN ---
Subjective Progress Note Date: 12/08/19 CHIEF COMPLAINT: Right colon mass HISTORY OF PRESENT ILLNESS: This is a 29-year-old female who underwent initial screening colonoscopy today. Patient's colonoscopy was done at an outside endoscopy clinic in the city. Patient and family history of colon cancer with her father having colon cancer. Patient's found to have a villous or 0.5 cm lesion of the right colon. Patient's had some rectal bleeding since her colonoscopy. She is tolerating a clear liquid diet. She is status post laparoscopic right colectomy and repair of incisional hernia. Patient does report some abdominal pain. Denies any nausea vomiting. She is not passing any gas or bowel movement yet. CEA is negative. Patient is a febrile. She is complaining of some oral thrush PHYSICAL EXAM: VITAL SIGNS: Reviewed. GENERAL: Well-developed in no acute distress. HEENT: No sclera icterus. Extraocular movements grossly intact. Moist buccal mucosa. Head is atraumatic, normocephalic. ABDOMEN: Soft. Nondistended. Nontender. NEUROLOGIC: Alert and oriented. Cranial nerves II through XII grossly intact. ASSESSMENT: 1. Right colon mass status post laparoscopic right colectomy and repair of incisional hernia. Postop day #1 PLAN: -Continue clear liquid diet -Encourage patient to increase activity and ambulate -Encourage incentive spirometer use -Nystatin swish and swallow ordered for oral thrush Physician Restaurant Floor Manager note has been reviewed by physician. Signing provider agrees with the documented findings, assessment, and plan of care. Objective - Vital Signs Vital signs: Vital Signs Temp 97.9 F 12/08/19 07:00 Pulse 63 12/08/19 07:00 Resp 16 12/08/19 07:00 BP 94/57 12/08/19 07:00 Pulse Ox 97 12/08/19 01:21 Intake & Output 12/07/19 12/08/19 12/08/19 18:59 06:59 18:59 Intake Total 2049 300 Output Total 335 4800 Balance 1715 -4500 Intake: IV 0 Oral 300 Output: Urine 325 4800 Uretheral (Groves) 2400 Estimated Blood Loss 10 Other: Voiding Method Indwelling Catheter Indwelling Catheter Indwelling Catheter - Labs CBC & Chem 7: 12/06/19 15:35 12/06/19 15:35
[2019-12-08] MEDS: NYSTATIN 100,000 UNIT/ML SUSP 500,000 UNIT/5 ML CUP PO SCH ×3 (15:10→21:43)
--- NOTE | 2019-12-08 23:31 | PN ---
PROGRESS NOTE A 49-year-old white female, remains on fluids and oral medicines, but only clear liquids until bowel sounds improve, status post colectomy. Pathology is pending. CARDIOVASCULAR: S1, S2. LUNGS: Clear. GI: Soft. Incision is clean, dry, intact. HEMATOLOGY: Negative Homans. PSYCH: Fair mood and affect. ASSESSMENT: 1. Status post colectomy for colon polyp versus mass versus cancer. 2. Hypothyroidism. 3. Chronic neuropathy. Continue home medicines. Prognosis guarded. Await for standard postop surgical care. PT, OT. Home medicines. Please see further orders. MMODL / IJN: [id number] /
[2019-12-09] MEDS: oxyCODONE-APAP 7.5-325MG 1 EACH TAB PO PRN ×4 (01:56→19:24)
[2019-12-09] MEDS: KETOROLAC 15 MG/ML 1 ML VIAL IVP PRN (04:24)
[2019-12-09] MEDS: D5-0.45% NACL WITH KCL 20MEQ/L 1,000 ML IV SCH ×3 (07:12→22:57)
[2019-12-09 07:20] LABS: HCT 34.4 % (34.0-46.0); HGB 10.9 gm/dL (11.4-16.0); MCH 28.5 pg (25.0-35.0); MCHC 31.7 g/dL (31.0-37.0); MCV 89.7 fL (80.0-100.0); Mean Platelet Volume 8.7; Platelet Count 188 k/uL (150-450); RBC 3.84 m/uL (3.80-5.40); RDW 12.8 % (11.5-15.5); WBC 6.5 k/uL (3.8-10.6)
[2019-12-09 07:47] LABS: African American GFR (CKD) >90 (>60 ml/min/1.73 sqM); Anion Gap 5 mmol/L; Blood Urea Nitrogen 3 mg/dL (7-17); Calcium 8.3 mg/dL (8.4-10.2); Carbon Dioxide 28 mmol/L (22-30); Chloride 108 mmol/L (98-107); Glucose 102 mg/dL (74-99); Non-African American GFR(CKD) >90 (>60 ml/min/1.73 sqM); Sodium 141 mmol/L (137-145)
[2019-12-09] MEDS: SODIUM CHLORIDE 0.9% 1,000 ML IV SCH ×2 (08:23→22:58)
[2019-12-09] MEDS: PANTOPRAZOLE 40 MG/10 ML VIAL IVP SCH (08:26)
[2019-12-09] MEDS: diazePAM 5 MG TAB PO SCH ×2 (08:26→20:34)
[2019-12-09] MEDS: NYSTATIN 100,000 UNIT/ML SUSP 500,000 UNIT/5 ML CUP PO SCH ×4 (08:27→21:36)
[2019-12-09] MEDS: THYROID, PORK 30 MG TAB PO SCH (08:27)
[2019-12-09] MEDS: HYDROmorphone 0.5 MG/0.5 ML SYRINGE IVP PRN ×3 (08:40→21:36)
--- NOTE | 2019-12-09 11:52 | P.PN ---
Subjective Progress Note Date: 12/09/19 CHIEF COMPLAINT: Right colon mass HISTORY OF PRESENT ILLNESS: She is status post laparoscopic right colectomy and repair of incisional hernia. Patient is complaining of uncontrolled abdominal pain. She has been started on Percocets and using Dilaudid for breakthrough pain. Her pain is slightly better this morning with this regimen of medicine. She also is having issues with urinating. She feels that she is not fully emptying her bladder and is having a lot of pressure. Bladder scan completed sh owing 533 mL. Groves catheter has been placed. Urinalysis ordered. Patient is reporting having bowel movements. She denies any nausea or vomiting PHYSICAL EXAM: VITAL SIGNS: Reviewed. GENERAL: Well-developed in no acute distress. HEENT: No sclera icterus. Extraocular movements grossly intact. Moist buccal mucosa. Head is atraumatic, normocephalic. ABDOMEN: Soft. Nondistended. Tender incision sites. Bruising around the umbilicus NEUROLOGIC: Alert and oriented. Cranial nerves II through XII grossly intact. ASSESSMENT: 1. Right colon mass status post laparoscopic right colectomy and repair of incisional hernia. Postop day #2 2. Urinary retention PLAN: -Advanced to full liquid diet -Encourage patient to increase activity and ambulate -Encourage incentive spirometer use -Continue Nystatin swish and swallow ordered for oral thrush -Groves catheter placed -Check urinalysis -Continue pain medications as needed Physician Human Geography Faculty Member note has been reviewed by physician. Signing provider agrees with the documented findings, assessment, and plan of care. Objective - Vital Signs Vital signs: Vital Signs Temp 97.8 F 12/09/19 00:30 Pulse 54 L 12/09/19 00:30 Resp 16 12/09/19 00:30 BP 90/56 12/09/19 00:30 Pulse Ox 95 12/09/19 00:30 Intake & Output 12/08/19 12/09/19 12/09/19 18:59 06:59 18:59 Intake Total 1160 Output Total 400 300 Balance -400 860 Intake: Intake, IV Titration 1100 Amount D5-0.45% NaCl with KCl 1100 20Meq/l 1,000 ml @ 125 mls/hr IV .Q8H MONTRELL Rx#: [id number] Oral 60 Output: Urine 400 300 Uretheral (Groves) 200 Other: Voiding Method Indwelling Catheter Toilet # Voids 1 1 # Bowel Movements 1 - Labs CBC & Chem 7: 12/09/19 06:50 12/09/19 06:50 Labs: Abnormal Lab Results - Last 24 Hours (Table) 12/09/19 12/09/19 Range/Units 06:50 06:50 Hgb 10.9 L (11.4-16.0) gm/dL Chloride 108 H (98-107) mmol/L BUN 3 L (7-17) mg/dL Glucose 102 H (74-99) mg/dL Calcium 8.3 L (8.4-10.2) mg/dL
[2019-12-09 12:12] LABS: Appearance,Urine Clear (Clear); Bilirubin,Urine Negative (Negative); Blood,Urine Negative (Negative); Color,Urine Colorless; Glucose,Urine (UA) Negative (Negative); Ketones,Urine Negative (Negative); Leukocyte Esterase,Urine Moderate (Negative); Mucus,Urine Rare /hpf; Nitrite,Urine Negative (Negative); Protein,Urine Negative (Negative); RBC,Urine 1 /hpf (0-5); Specific Gravity,Urine 1.003 (1.001-1.035); Squamous Epithelial Cell,Urine 1 /hpf (0-4); Urobilinogen,Urine <2.0 mg/dL (<2.0); WBC,Urine 4 /hpf (0-5)
[2019-12-10] MEDS: oxyCODONE-APAP 7.5-325MG 1 EACH TAB PO PRN ×4 (01:59→22:32)
[2019-12-10] MEDS: HYDROmorphone 0.5 MG/0.5 ML SYRINGE IVP PRN ×4 (04:14→18:10)
--- NOTE | 2019-12-10 06:58 | PN ---
PROGRESS NOTE A 49-year-old white female, status post colectomy. Waiting for pathology to come back. Psych fair mood and affect. Neurologic alert and orient x3. Cardiovascular S1, S2. Lungs clear. GI soft. Hematology negative Homans. Positive bowel sounds. Positive bowel movements ASSESSMENT: Status post colectomy. Diet will be advanced to regular diet. Follow up in next 24-48 hours for possible discharge. Pain control as above. MMODL / IJN: [id number] /
[2019-12-10] MEDS: NYSTATIN 100,000 UNIT/ML SUSP 500,000 UNIT/5 ML CUP PO SCH ×4 (07:25→21:15)
[2019-12-10] MEDS: PANTOPRAZOLE 40 MG/10 ML VIAL IVP SCH (07:25)
[2019-12-10] MEDS: THYROID, PORK 30 MG TAB PO SCH ×2 (07:26)
[2019-12-10] MEDS: diazePAM 5 MG TAB PO SCH ×2 (07:26→21:15)
[2019-12-10] MEDS: D5-0.45% NACL WITH KCL 20MEQ/L 1,000 ML IV SCH ×3 (07:33→23:17)
[2019-12-10 10:01] LABS: HCT 35.6 % (34.0-46.0); HGB 11.6 gm/dL (11.4-16.0); MCHC 32.5 g/dL (31.0-37.0); MCV 89.3 fL (80.0-100.0); Mean Platelet Volume 8.7; Platelet Count 215 k/uL (150-450); RBC 3.99 m/uL (3.80-5.40); RDW 12.4 % (11.5-15.5); WBC 6.5 k/uL (3.8-10.6)
--- NOTE | 2019-12-10 12:52 | P.PN ---
Subjective Progress Note Date: 12/10/19 CHIEF COMPLAINT: Right colon mass HISTORY OF PRESENT ILLNESS: She is status post laparoscopic right colectomy and repair of incisional hernia. Patient reporting that her abdominal pain is better controlled today. She denies any nausea or vomiting. She reports having bowel movements. She is currently on a full liquid diet. Groves catheter inserted yesterday for urinary retention. Patient is afebrile. WBC 6.5 PHYSICAL EXAM: VITAL SIGNS: Reviewed. GENERAL: Well-developed in no acute distress. HEENT: No sclera icterus. Extraocular movements grossly intact. Moist buccal mucosa. Head is atraumatic, normocephalic. ABDOMEN: Soft. Nondistended. Tender incision sites. Bruising around the um bilicus NEUROLOGIC: Alert and oriented. Cranial nerves II through XII grossly intact. ASSESSMENT: 1. Right colon mass status post laparoscopic right colectomy and repair of incisional hernia. Postop day #2 2. Urinary retention status post Groves catheter insertion PLAN: -Advance diet to soft -Encourage patient to increase activity and ambulate -Encourage incentive spirometer use -Continue Nystatin swish and swallow ordered for oral thrush -Continue pain medications as needed Physician Featherer note has been reviewed by physician. Signing provider agrees with the documented findings, assessment, and plan of care. Objective - Vital Signs Vital signs: Vital Signs Temp 97.9 F 12/10/19 07:44 Pulse 60 12/10/19 08:10 Resp 15 12/10/19 08:10 BP 126/74 12/10/19 07:44 Pulse Ox 97 12/10/19 07:44 Intake & Output 12/09/19 12/10/19 12/10/19 18:59 06:59 18:59 Intake Total 1435 Output Total 1999 3000 1500 Balance -1999 Intake: Intake, IV Titration 1375 Amount D5-0.45% NaCl with KCl 1375 20Meq/l 1,000 ml @ 125 mls/hr IV .Q8H MONTRELL Rx#: [id number] Oral 60 Output: Urine 1999 3000 1500 Other: Voiding Method Indwelling Catheter Indwelling Catheter # Voids 1 - Labs CBC & Chem 7: 12/10/19 09:28 12/09/19 06:50
--- NOTE | 2019-12-10 15:01 | PN ---
PROGRESS NOTE She remains on Percocet for pain. Potassium replacement protocol, thyroid for hypothyroidism, Reglan for gastroparesis and nausea and Dilaudid for chronic pain on top of her Valium 5 mg b.i.d. for anxiety. Await for Pathology, status post surgery. Her diet was advanced to full clears last night. She has gotten progressive diarrhea and stools so her diet will be increased. Nystatin swish and swallow for oral thrush. Continue with pain medicines. No nausea, vomiting. CARDIOVASCULAR: S1, S2. Lungs clear. GI soft. Hematology, negative Homans. Psych, fair mood and affect. MMODL / IJN: [id number] /
[2019-12-10] MEDS: SODIUM CHLORIDE 0.9% 1,000 ML IV SCH ×2 (15:34→23:18)
[2019-12-11] MEDS: HYDROmorphone 0.5 MG/0.5 ML SYRINGE IVP PRN ×2 (01:46→20:42)
[2019-12-11] MEDS: oxyCODONE-APAP 7.5-325MG 1 EACH TAB PO PRN ×3 (06:05→17:10)
[2019-12-11] MEDS: diazePAM 5 MG TAB PO SCH ×2 (08:14→20:42)
[2019-12-11] MEDS: D5-0.45% NACL WITH KCL 20MEQ/L 1,000 ML IV SCH ×2 (08:14→13:49)
[2019-12-11] MEDS: PANTOPRAZOLE 40 MG/10 ML VIAL IVP SCH (08:14)
[2019-12-11] MEDS: NYSTATIN 100,000 UNIT/ML SUSP 500,000 UNIT/5 ML CUP PO SCH ×4 (08:14→20:42)
--- NOTE | 2019-12-11 09:28 | P.PN ---
Subjective Progress Note Date: 12/11/19 Principal diagnosis: Right colon polyp Patient complaining of mild soreness when moving side to side. Says her pain is not as bad when she is laying still or ambulating. No labs today. Labs from yesterday looked good. Tolerating chopped food diet. Groves catheter remains in place for urinary retention. Patient afebrile. Passing flatus. Objective - Vital Signs Vital signs: Vital Signs Temp 98.0 F 12/11/19 07:00 Pulse 52 L 12/11/19 07:00 Resp 18 12/11/19 07:00 BP 121/79 12/11/19 07:00 Pulse Ox 97 12/11/19 07:00 Intake & Output 12/10/19 12/11/19 12/11/19 18:59 06:59 18:59 Output Total 3820 1750 Balance -3820 -1750 Output: Urine 3820 1750 Other: Voiding Method Indwelling Catheter Indwelling Catheter # Voids 1 - Exam Abdomen: Soft, nondistended, incision clean and dry, mild right-sided tenderness - Labs CBC & Chem 7: 12/10/19 09:28 12/09/19 06:50 Assessment and Plan (1) Colonic mass Narrative/Plan: Patient doing fairly well. Continue solid food diet. Increase activity. Remove Groves catheter tomorrow. Current Visit: Yes Status: Acute Code(s): K63.89 - OTHER SPECIFIED DISEASES OF INTESTINE SNOMED Code(s): 400990226
[2019-12-12] MEDS: oxyCODONE-APAP 7.5-325MG 1 EACH TAB PO PRN ×4 (01:06→18:27)
--- NOTE | 2019-12-12 03:16 | PN ---
PROGRESS NOTE 49-year-old white female, status post colectomy. Her diet is going to be advanced today. She will possibly go home in the next day or two. Having no chest pain or shortness of breath. No lightheaded, dizziness, syncope. Vital signs stable. Afebrile. Cardiovascular S1, S2. Lungs clear. GI soft. Incision clean, dry, intact. ASSESSMENT: Status post colectomy for tubular adenoma. Continue current treatment. Possible discharge home. Advance diet. MMODL / IJN: [id number] /
[2019-12-12] MEDS: D5-0.45% NACL WITH KCL 20MEQ/L 1,000 ML IV SCH ×4 (03:33→22:36)
[2019-12-12] MEDS: NYSTATIN 100,000 UNIT/ML SUSP 500,000 UNIT/5 ML CUP PO SCH ×4 (07:38→21:21)
[2019-12-12] MEDS: THYROID, PORK 30 MG TAB PO SCH (07:38)
[2019-12-12] MEDS: PANTOPRAZOLE 40 MG/10 ML VIAL IVP SCH (07:39)
[2019-12-12] MEDS: diazePAM 5 MG TAB PO SCH ×2 (07:39→21:21)
--- NOTE | 2019-12-12 09:47 | P.PN ---
Subjective Progress Note Date: 12/12/19 Principal diagnosis: Right colon polyp Patient doing better today. Her pain is improved. No bowel movement yet. She is passing flatus. Denies nausea or vomiting. Objective - Vital Signs Vital signs: Vital Signs Temp 98.3 F 12/12/19 09:41 Pulse 55 L 12/12/19 09:41 Resp 18 12/12/19 09:41 BP 121/75 12/12/19 09:41 Pulse Ox 97 12/12/19 09:41 Intake & Output 12/11/19 12/12/19 12/12/19 18:59 06:59 18:59 Intake Total 1080 100 Output Total 1500 2800 800 Balance -420 -2700 -800 Intake: Oral 1080 100 Output: Urine 1500 2800 800 Uretheral (Groves) 1100 800 Other: Voiding Method Indwelling Catheter - Exam Abdomen: Soft, nondistended, incision clean and dry, mild right-sided tenderness - Labs CBC & Chem 7: 12/10/19 09:28 12/09/19 06:50 Assessment and Plan (1) Colonic mass Narrative/Plan: Continue regular diet. Monitor urinary output after Groves catheter removed this morning. Ambulate. Possible discharge tomorrow. Current Visit: Yes Status: Acute Code(s): K63.89 - OTHER SPECIFIED DISEASES OF INTESTINE SNOMED Code(s): 550313333
--- NOTE | 2019-12-12 13:49 | PN ---
PROGRESS NOTE HISTORY: A 49-year-old white female, status post colectomy. Pain is improving. She is on full diet now, regular diet. Possible discharge home tomorrow. EXAM: Cardiovascular S1, S2. Lungs clear. GI soft. Hematology negative Homans. ASSESSMENT: Status post colectomy from tubular adenoma with near bowel obstruction. Patient is much improved. All biopsies are negative. Follow up in next 24 to 48 hours for possible discharge. MMODL / IJN: [id number] /
[2019-12-12 21:59] VITALS: RESP 18
[2019-12-13] MEDS: oxyCODONE-APAP 7.5-325MG 1 EACH TAB PO PRN ×3 (00:38→12:10)
[2019-12-13 01:03] VITALS: BP 91/62; PULSE 78; TEMP 97.9
[2019-12-13] MEDS: diazePAM 5 MG TAB PO SCH (07:21)
[2019-12-13] MEDS: NYSTATIN 100,000 UNIT/ML SUSP 500,000 UNIT/5 ML CUP PO SCH ×2 (07:21→12:10)
[2019-12-13] MEDS: THYROID, PORK 30 MG TAB PO SCH (07:22)
[2019-12-13] MEDS: PANTOPRAZOLE 40 MG/10 ML VIAL IVP SCH (07:22)
[2019-12-13] MEDS: D5-0.45% NACL WITH KCL 20MEQ/L 1,000 ML IV SCH (07:24)
--- NOTE | 2019-12-13 11:29 | P.PN ---
Subjective Progress Note Date: 12/13/19 Principal diagnosis: Right colon polyp Patient doing well today. Pain is improved. She did have a bowel movement. Passing flatus. No urinary retention noted. Denies nausea or vomiting. Objective - Vital Signs Vital signs: Vital Signs Temp 97.9 F 12/13/19 00:55 Pulse 78 12/13/19 00:55 Resp 18 12/13/19 04:20 BP 91/62 12/13/19 00:55 Pulse Ox 96 12/13/19 00:55 Intake & Output 12/12/19 12/13/19 12/13/19 18:59 06:59 18:59 Intake Total 100 Output Total 1700 Balance -1700 100 Intake: Oral 100 Output: Urine 1700 Uretheral (Groves) 800 Other: Voiding Method Toilet # Voids 1 # Bowel Movements 1 - Exam Abdomen: Soft, nondistended, mild tenderness, incision clean dry - Labs CBC & Chem 7: 12/10/19 09:28 12/09/19 06:50 Assessment and Plan (1) Colonic mass Narrative/Plan: Patient doing well at this time. Continue regular diet. Continue ambulation. Discharge per primary service. Current Visit: Yes Status: Acute Code(s): K63.89 - OTHER SPECIFIED DISEASES OF INTESTINE SNOMED Code(s): 999634469
[2019-12-13 11:40] VITALS: BMI 22.4
== END 2019-12-13 14:21 | disposition home or self-care (01) | DRG 330 ==
LOC: 6PED 12:39 → 4SSUR 12-07 13:40
PROVIDERS: ADMIT Family Medicine; ATTEND Family Medicine
PROC: 0WQF0ZZ Repair Abdominal Wall, Open Approach (ICD-10-PCS; principal; 2019-12-07 12:15)
PROC: 0DBF4ZZ Excision of Right Large Intestine, Percutaneous Endoscopic Approach (ICD-10-PCS; principal; 2019-12-07 12:15)
DX: D12.2 Benign neoplasm of ascending colon (principal); B37.0 Candidal stomatitis; E03.9 Hypothyroidism, unspecified; F41.9 Anxiety disorder, unspecified; G62.9 Polyneuropathy, unspecified; G89.29 Other chronic pain; K31.84 Gastroparesis; K43.2 Incisional hernia without obstruction or gangrene; Z80.0 Family history of malignant neoplasm of digestive organs; Z87.891 Personal history of nicotine dependence; Z90.710 Acquired absence of both cervix and uterus; Z96.649 Presence of unspecified artificial hip joint; Z96.653 Presence of artificial knee joint, bilateral; Z87.01 Personal history of pneumonia (recurrent); Z87.440 Personal history of urinary (tract) infections; Z79.890 Hormone replacement therapy; Z79.899 Other long term (current) drug therapy; Z79.891 Long term (current) use of opiate analgesic; Z88.1 Allergy status to other antibiotic agents; Z91.030 Bee allergy status; Z88.8 Allergy status to other drugs, medicaments and biological substances; R33.9 Retention of urine, unspecified
CPT/HCPCS: 80048; 80053; 81001; 82378; 85027; 88309; 93005

== ENCOUNTER → 2020-05-03 | Outpatient (CLI) | payer MEDICARE ==
[2020-05-03 12:03] LABS: Basophils # (A) 0.1 k/uL (0-0.2); Basophils % (A) 1 %; Eosinophils # (A) 0.3 k/uL (0-0.7); Eosinophils % (A) 4 %; HCT 43.5 % (34.0-46.0); HGB 14.4 gm/dL (11.4-16.0); Lymphocytes % (A) 32 %; MCH 29.4 pg (25.0-35.0); MCHC 33.1 g/dL (31.0-37.0); MCV 88.8 fL (80.0-100.0); Mean Platelet Volume 8.2; Monocytes # (A) 0.4 k/uL (0-1.0); Monocytes % (A) 6 %; Neutrophils # (A) 3.4 k/uL (1.3-7.7); Neutrophils % (A) 55 %; Platelet Count 275 k/uL (150-450); RDW 12.4 % (11.5-15.5); WBC 6.2 k/uL (3.8-10.6)
== END | disposition home or self-care (01) ==
LOC: LABPAT 10:32
PROVIDERS: ATTEND Surgery
DX: Z01.818 Encounter for other preprocedural examination (principal); K43.0 Incisional hernia with obstruction, without gangrene
CPT/HCPCS: 36415; 85025

== ENCOUNTER 2020-05-10 07:09 | Observation (INO) | payer MEDICARE ==
[2020-05-08 14:39] VITALS: BMI 22.6
[~2020-05-10 07:09] MED LIST: ACETAMINOPHEN TAB 500 MG TAB PO PRN; CLINDAMYCIN 900 MG in DEXTROSE 5% IN WATER 50 ML IVPB PRN; DEXAMETHASONE SOD PHOSPHATE 4 MG/ML 1 ML VIAL IV ONE; HEPARIN SODIUM,PORCINE 5,000 UNIT/ML 1 ML VIAL SQ PRN; LACTATED RINGERS 1,000 ML IV SCH; LIDOCAINE 1% (10MG/ML) FOR IV START INTRADERMA PRN; MIDAZOLAM 2 MG/2 ML VIAL IV PRN; ONDANSETRON 4 MG/2 ML VIAL IVP ONE
[2020-05-10] MEDS ORDERED: MIDAZOLAM 2 MG/2 ML VIAL IVP ONE (08:40)
[2020-05-10] MEDS ORDERED: fentaNYL (PF) 50 MCG/ML 2 ML AMP IVP ONE ×2 (08:41→13:18)
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
[2020-05-10] MEDS ORDERED: LIDOCAINE 1% INJ 10MG/ML (20 ML MDV) ONE (09:11)
[2020-05-10] MEDS ORDERED: GLYCOPYRROLATE 0.2 MG/ML 2 ML VIAL ONE (09:11)
[2020-05-10] MEDS ORDERED: NEOSTIGMINE 1 MG/ML 10 ML VIAL ONE (09:11)
[2020-05-10] MEDS ORDERED: fentaNYL (PF) 50 MCG/ML 2 ML AMP ONE ×2 (09:11→13:13)
[2020-05-10] MEDS ORDERED: SUCCINYLCHOLINE CHLORIDE 100 MG/5 ML SYR IV ONE (09:11)
[2020-05-10] MEDS ORDERED: KETOROLAC 30 MG/ML 1 ML VIAL ONE (09:11)
[2020-05-10] MEDS ORDERED: DEXAMETHASONE SOD PHOSPHATE 4 MG/ML 1 ML VIAL ONE (09:11)
[2020-05-10] MEDS ORDERED: MIDAZOLAM 2 MG/2 ML VIAL ONE (09:11)
[2020-05-10] MEDS ORDERED: ROCURONIUM 10 MG/ML (10 ML VIAL) IV ONE (09:11)
[2020-05-10] MEDS ORDERED: KETAMINE 10 MG/ML 20 ML VIAL ONE (09:11)
[2020-05-10] MEDS ORDERED: ROPIVACAINE 5 MG/ML 30 ML VIAL ONE (09:11)
[2020-05-10] MEDS ORDERED: PROPOFOL 10 MG/ML 20 ML VIAL IV ONE (09:11)
[2020-05-10] MEDS ORDERED: BUPIVACAINE (PF) 0.25% 30 ML VIAL SQ ONE (09:42)
--- NOTE | 2020-05-10 10:23 | P.ANPRN ---
Procedure Note - Anesthesia - Nerve Block Performed Bilateral Rectus Abdominis Single Time Out Performed: Yes (840) Date of Procedure: 05/10/20 Procedure Start Time: 08:41 Procedure Stop Time: 08:47 Location of Patient: PreOp Indication: Acute Post-Operative Pain, Requested by Surgeon Specifically requested for management of pain by DrEnzo: Luis A Lantigua Sedation Type: Sedate with meaningful contact maintained Preparation: Sterile Prep Position: Supine Catheter: None Needle Types: Pajunk Needle Gauge: 21 Ultrasound used to visualize needle placement: Yes Ultrasound used to observe medication spread: Yes Injectate: 0.5% Ropivacaine (see comment for volume) (15cc each side) Blood Aspirated: No Pain Paresthesia on Injection Noted: No Resistance on Injection: Normal Image Stored and Saved: Yes Events: Uneventful and Well Tolerated
--- NOTE | 2020-05-10 10:41 | P.OP ---
Date of Procedure: 05/10/20 Preoperative Diagnosis: Incisional hernia Postoperative Diagnosis: Incisional hernia Procedure(s) Performed: Laparoscopic robotic system repair of incisional hernia. Excision of omental hernia sac Anesthesia: FRITZ Surgeon: Luis A Lantigua Pathology: other (Omentum/hernia sac) Condition: stable Disposition: PACU Description of Procedure: The patient was placed on the operating table in the supine position. He received general anesthesia. His abdomen was prepped and draped usual fashion. Using a 5 mm optical trocar under direct visualization the peritoneal cavity was entered in the left upper quadrant. The abdomen was then insufflated. The laparoscope was placed back into the perineal cavity. Next a 8 mm robotic trocar was placed in the left lower quadrant and a 12 mm robotic trocar was placed in the left lateral position. The original 5 mm trocar was exchanged for a 8 mm robotic trocar. The patient's placed in the left side up position. And the patient was docked to the robot. The incisional hernia was visualized. Using hook cautery the peritoneum over the incisional hernia was excised. The incarcerated omentum and hernia sac were transected and sent to pathology The fascial opening was repaired using 0V LOC suture. Next a piece of 11 cm round ventral light ST mesh was placed into the. Cavity and secured with 2 OV lock suture. The patient was undocked the robot. The needles were retrieved. The fascia of the 12 mm trocar site was closed with 0 Ethibond suture. Skin was closed interrupted 3-0 Monocryl suture. Dermabond dressings was applied. Patient tolerated procedure well and was sent to recovery room stable condition.
[2020-05-10] MEDS: fentaNYL (PF) 50 MCG/ML 2 ML AMP IVP PRN ×2 (10:42→10:55)
[2020-05-10] MEDS ORDERED: HYDROmorphone 0.5 MG/0.5 ML SYRINGE IVP ONE (11:03)
[2020-05-10] MEDS ORDERED: diphenhydrAMINE 50 MG/ML 1 ML VIAL IVP ONE (11:08)
[2020-05-10] MEDS ORDERED: ONDANSETRON 4 MG/2 ML VIAL ONE (11:28)
[2020-05-10] MEDS ORDERED: ONDANSETRON 4 MG/2 ML VIAL IVP ONE (11:30)
[2020-05-10] MEDS ORDERED: ONDANSETRON 4 MG/2 ML VIAL IVP PRN (13:58)
[2020-05-10] MEDS ORDERED: bisacodyL 10 MG SUPP RECTAL PRN (13:58)
[2020-05-10] MEDS ORDERED: NALOXONE 0.4 MG/ML 1 ML VIAL IV PRN (13:58)
[2020-05-10] MEDS ORDERED: LACTATED RINGERS 1,000 ML IV ONE ×2 (13:58→14:00)
[2020-05-10] MEDS: HYDROcodone/APAP 5-325MG 1 EACH TAB PO PRN ×2 (16:15→22:21)
[2020-05-10] MEDS: KETOROLAC 15 MG/ML 1 ML VIAL IVP SCH ×2 (17:10→23:26)
[2020-05-10] MEDS ORDERED: TAMSULOSIN 0.4 MG CAP.ER.24H PO STA (17:13)
[2020-05-11] MEDS: HYDROcodone/APAP 5-325MG 1 EACH TAB PO PRN ×4 (04:45→22:57)
[2020-05-11 04:59] VITALS: RESP 16
[2020-05-11] MEDS: KETOROLAC 15 MG/ML 1 ML VIAL IVP SCH ×3 (05:42→18:31)
[2020-05-11] MEDS ORDERED: LIDOCAINE 5% PATCH TOPICAL PRN (10:08)
[2020-05-11] MEDS: ENOXAPARIN 40 MG/0.4 ML SYRINGE SQ SCH (10:08)
[2020-05-11] MEDS ORDERED: TAMSULOSIN 0.4 MG CAP.ER.24H PO STA (10:12)
[2020-05-11] MEDS ORDERED: THYROID PORK 60 MG PO SCH (10:15)
--- NOTE | 2020-05-11 15:10 | P.PN ---
Subjective Progress Note Date: 05/11/20 CHIEF COMPLAINT: Incisional hernia HISTORY OF PRESENT ILLNESS: Patient is status post laparoscopic robotic system repair of incisional hernia and excision of omental hernia sac. Patient does report some abdominal pain. She is complaining of urinary retention. She did receive a dose of Flomax this morning. However, patient continues to have evidence of urinary retention. She's had 2 postvoid residual checks and is still retaining about 300 mL. She is complaining about bladder spasming. She did require to be straight cathed yesterday x 3. She has been up and ambulating. She is passing gas. She is on a regular diet. She is afebrile. PHYSICAL EXAM: VITAL SIGNS: Reviewed. GENERAL: Well-developed in no acute distress. HEENT: No sclera icterus. Extraocular movements grossly intact. Moist buccal mucosa. Head is atraumatic, normocephalic. ABDOMEN: Soft. Nondistended. Tenderness with palpation of lower abdomen. Incision sites clean dry and intact NEUROLOGIC: Alert and oriented. Cranial nerves II through XII grossly intact. ASSESSMENT: 1. Incisional hernia status post laparoscopic robotic system repair of incisional hernia and excision of omental hernia sac 2. Urinary retention PLAN: -Place Groves catheter -Add Flomax -Continue regular diet -Continue pain medication as needed -Order incentive spirometer -Encourage patient to ambulate -GI prophylaxis Protonix and DVT prophylaxis Lovenox Physician Optometric Technician note has been reviewed by physician. Signing provider agrees with the documented findings, assessment, and plan of care. Objective - Vital Signs Vital signs: Vital Signs Temp 98.4 F 05/11/20 13:56 Pulse 68 05/11/20 13:56 Resp 16 05/11/20 13:56 BP 105/64 05/11/20 13:56 Pulse Ox 94 L 05/11/20 02:15 Intake & Output 05/10/20 05/11/20 05/11/20 18:59 06:59 18:59 Intake Total 2155 Output Total 2704 1750 1792 Balance -548 -1750 -1792 Weight 69.9 kg Intake: IV 2155 Output: Urine 2700 1750 1350 Uretheral (Groves) 900 550 Post Void Residual 442 Estimated Blood Loss 4 Other: Voiding Method Toilet Toilet # Voids 1 400 1
[2020-05-11] MEDS: PANTOPRAZOLE 40 MG TABLET PO SCH (16:56)
[2020-05-11] MEDS ORDERED: TAMSULOSIN 0.4 MG CAP.ER.24H PO SCH (18:30)
--- NOTE | 2020-05-11 19:27 | CONS ---
CONSULTATION DATE OF CONSULTATION: 05/10/2020 This is a white female, status post laparoscopic robotic-assisted incisional repair of a hernia with omental hernia sac. She has severe abdominal pain. She has urinary retention of over 300 mL. I started her on Flomax to help her urinate. She still has urinary retention. She has 2 post-void residual checks retaining about 300 mL. Possible bladder spasming. She had straight catheterization yesterday x3. Passing gas. Pain level is 10/10. PHYSICAL EXAMINATION: Vital signs stable. Afebrile. CARDIOVASCULAR: S1, S2. PSYCH: Anxious, nervous. LUNGS: Clear. CARDIOVASCULAR: S1, S2. NEUROLOGIC: Cranial nerves intact. ASSESSMENT: 1. Status post incisional hernia. 2. Laparoscopic robotic . 3. Incisional hernia associated with omental hernia sac. 4. Urinary retention. I added Flomax. Groves catheter. Regular diet. Pain medicine. Possible discharge home tomorrow. MMODL / IJN: [id number] /
[2020-05-11] MEDS: diazePAM 5 MG TAB PO SCH (20:17)
[2020-05-12] MEDS: KETOROLAC 15 MG/ML 1 ML VIAL IVP SCH ×3 (01:35→11:17)
[2020-05-12] MEDS: diazePAM 5 MG TAB PO SCH (08:00)
[2020-05-12] MEDS: PANTOPRAZOLE 40 MG TABLET PO SCH (08:01)
[2020-05-12] MEDS: ENOXAPARIN 40 MG/0.4 ML SYRINGE SQ SCH (08:01)
[2020-05-12] MEDS ORDERED: THYROID PORK 90 MG PO SCH (09:00)
[2020-05-12 09:33] LABS: Basophils # (A) 0.03 X 10*3/uL (0.00-0.10); Basophils % (A) 0.4 %; Eosinophils # (A) 0.29 X 10*3/uL (0.04-0.35); Eosinophils % (A) 4.3 %; HCT 38.1 % (37.2-46.3); HGB 12.1 g/dL (12.0-15.0); Lymphocytes % (A) 35.5 %; MCH 28.4 pg (27.0-32.0); MCHC 31.8 g/dL (32.0-37.0); MCV 89.4 fL (80.0-97.0); Mean Platelet Volume 11.1 fL (9.5-12.2); Monocytes # (A) 0.57 X 10*3/uL (0.20-1.00); Monocytes % (A) 8.4 %; Neutrophils # (A) 3.46 X 10*3/uL (1.80-7.70); Neutrophils % (A) 51.3 %; Platelet Count 221 X 10*3/uL (140-440); RBC 4.26 X 10*6/uL (4.10-5.20); RDW 12.6 % (11.5-14.5); WBC 6.76 X 10*3/uL (4.50-10.00)
[2020-05-12 09:57] LABS: African American GFR (CKD) 98.9 (60.0-200.0); Anion Gap 5.7 mmol/L (4.00-12.00); BUN/Creat Ratio 11.25 Ratio (12.00-20.00); Calcium 8.6 mg/dL (8.7-10.3); Carbon Dioxide 31.3 mmol/L (21.6-31.8); Non-African American GFR(CKD) 85.4 (60.0-200.0)
[2020-05-12] MEDS ORDERED: DOCUSATE 100 MG CAP PO SCH (10:30)
[2020-05-12 12:30] VITALS: BP 112/73; PULSE 64; TEMP 97.4
[2020-05-12] MEDS: HYDROcodone/APAP 5-325MG 1 EACH TAB PO PRN (13:15)
--- NOTE | 2020-05-12 13:46 | P.DS ---
Providers Date of admission: 05/12/20 13:50 Expected date of discharge: 05/12/20 Attending physician: Luis A Lantigua Consults: 05/10/20 13:58 Consult Physician Routine Consulting Provider: Jose Gaspar Consult Reason/Comments: Medical management Do you want consulting provider notified?: Yes Primary care physician: Jose Gaspar [facility] Course: Discharge diagnosis 1. Incisional hernia status post laparoscopic robotic system repair of incisional hernia and excision of omental hernia sac 2. Urinary retention resolved Hospital course This is a 49-year-old female who developed an incisional hernia. She is status post laparoscopic robotic system repair of incisional hernia and excision of omental hernia sac. Patient tolerated surgery well. Her pain is controlled. She is tolerating diet. She is afebrile. She is ambulating without difficulty. She is stable for discharge. Please for chart for any further details. Physician Servicer Travel Trailers note has been reviewed by physician. Signing provider agrees with the documented findings, assessment, and plan of care. Patient Condition at Discharge: Stable Plan - Discharge Summary Discharge Rx Participant: No New Discharge Prescriptions: New Docusate [Colace] 100 mg PO BID #20 capsule Ibuprofen [Motrin] 600 mg PO Q6HR PRN #40 tab PRN Reason: Pain oxyCODONE HCL [OxyIR] 5 mg PO Q4H PRN 3 Days #18 tab PRN Reason: Pain Acetaminophen Tab [Tylenol] 650 mg PO Q6H #30 tab Continue Lidocaine 5% Patch [Lidoderm 5% Patch] 1 patch TOPICAL DAILY PRN PRN Reason: Pain diazePAM [Valium] 5 mg PO BID Thyroid,Pork [Intake Nurse Thyroid] 90 mg PO Q48H Ergocalciferol (Vitamin D2) [Drisdol (50,000 Iu)] 50,000 unit PO MO Thyroid,Pork [Intake Nurse Thyroid] 60 mg PO Q48H Discontinued oxyCODONE-APAP 7.5-325MG [Percocet 7.5-325 mg] 1 tab PO QID PRN PRN Reason: Pain Discharge Medication List Lidocaine 5% Patch [Lidoderm 5% Patch] 1 patch TOPICAL DAILY PRN 11/07/17 [History] diazePAM [Valium] 5 mg PO BID 11/07/17 [History] Ergocalciferol (Vitamin D2) [Drisdol (50,000 Iu)] 50,000 unit PO MO 12/06/19 [History] Thyroid,Pork [Intake Nurse Thyroid] 60 mg PO Q48H 12/06/19 [History] Thyroid,Pork [Intake Nurse Thyroid] 90 mg PO Q48H 12/06/19 [History] Acetaminophen Tab [Tylenol] 650 mg PO Q6H #30 tab 05/10/20 [Rx] Docusate [Colace] 100 mg PO BID #20 capsule 05/10/20 [Rx] Ibuprofen [Motrin] 600 mg PO Q6HR PRN #40 tab 05/10/20 [Rx] oxyCODONE HCL [OxyIR] 5 mg PO Q4H PRN 3 Days #18 tab 05/10/20 [Rx] Follow up Appointment(s)/Referral(s): Jose Gaspar MD [Primary Care Provider] - 05/16/20 1:00 pm Luis A Lantigua MD [STAFF PHYSICIAN] - 05/18/20 2:15 pm Patient Instructions/Handouts: *[facility] - Managing Your Pain After Surgery Without Opioids, *[facility] - (Anesthesia) Discharge Instructions Outpatient Surgery, Incisional Hernia (DC) Activity/Diet/Wound Care/Special Instructions: No driving while taking OxIR No lifting over 10 pounds You may shower. No soaking or tub baths for 2 weeks Very light activity until you are reevaluated at your follow up appointment with your surgeon Diet: Regular Discharge Disposition: HOME SELF-CARE
--- NOTE | 2020-05-12 16:27 | PN ---
PROGRESS NOTE DATE OF SERVICE: 05/11/2020 This is a 49-year-old white female status post abdominal mesh with urinary retention. She has a Groves catheter in place. She was started on Flomax a couple of days ago. Her pain level is 6/10. We are going to try to wean her off pain medicine and get her moving and try to remove the Groves tomorrow. CARDIOVASCULAR: S1, S2. LUNGS: Clear. GI: Soft. Diffuse tenderness over the abdominal area. HEMATOLOGY: Negative Homans. ASSESSMENT: Urinary retention, status post laparoscopic abdominal mesh surgery. Start her on Flomax. Continue with the Groves catheter. It will be removed in the morning and then possible discharge home if she is able to urinate. Pain control will be done. MMODL / IJN: [id number] /
--- NOTE | 2020-05-12 16:48 | PN ---
PROGRESS NOTE DATE OF SERVICE: 05/12/2020 This is a 49-year-old female status post abdominal adhesion laparoscopic hernia repair. She is going to be discharged home. Her Groves has been removed. She is urinating fine. She will be discharged home. Continue her thyroid medication, Valium, lidocaine patches, oxycodone for pain ibuprofen, Colace. She will follow up in the office in about a week. She is sitting up in bed, giving appropriate answers. CARDIOVASCULAR: S1, S2. LUNGS: Clear. GI: Soft. PLAN: Discharge home. Medications are reviewed. She will follow up in the office in a week. MMODL / IJN: [id number] /
[2020-05-15] MEDS ORDERED: ERGOCALCIFEROL 1,250 MCG (50,000 IU) CAPSULE PO SCH (09:00)
== END 2020-05-12 16:06 | disposition home or self-care (01) ==
LOC: OR 07:09 → 4SSUR 14:27 → OR 14:53 → 4SSUR 05-11 04:57 → OR 05-12 13:50
PROVIDERS: ADMIT Surgery; ATTEND Surgery
DX: K43.2 Incisional hernia without obstruction or gangrene (principal); R33.9 Retention of urine, unspecified; G89.29 Other chronic pain; D64.9 Anemia, unspecified; Z87.01 Personal history of pneumonia (recurrent); Z87.09 Personal history of other diseases of the respiratory system; Z87.440 Personal history of urinary (tract) infections; E03.9 Hypothyroidism, unspecified; R42 Dizziness and giddiness; R19.7 Diarrhea, unspecified; Z87.828 Personal history of other (healed) physical injury and trauma; R26.9 Unspecified abnormalities of gait and mobility; Z87.891 Personal history of nicotine dependence; Z90.710 Acquired absence of both cervix and uterus; Z96.653 Presence of artificial knee joint, bilateral; Z96.642 Presence of left artificial hip joint; Z86.010 Personal history of colon polyps; Z79.899 Other long term (current) drug therapy; Z79.890 Hormone replacement therapy; Z79.891 Long term (current) use of opiate analgesic; Z88.8 Allergy status to other drugs, medicaments and biological substances; Z88.1 Allergy status to other antibiotic agents; Z91.030 Bee allergy status; Z80.0 Family history of malignant neoplasm of digestive organs
CPT/HCPCS: 49655; 51701; 64488; 80048; 85025; 88302; G0378; C1781; J2250; J1200; J1644; J1100; J2710; J2405; J2001; J1650 ×2; J3010; J1885 ×4; J2795; J0330; J2704; J1170; 86850; 86900; 86901

== ENCOUNTER → 2020-06-30 | Outpatient (CLI) | payer MEDICARE ==
--- NOTE | 2020-06-30 13:50 | US ---
EXAMINATION TYPE: US gallbladder DATE OF EXAM: 06/30/2020 COMPARISON: NONE CLINICAL HISTORY: K81.1 Chronic cholecystitis. RUQ pain, back pain EXAM MEASUREMENTS: Liver Length: 14.0 cm Gallbladder Wall: 0.2 cm CBD: 0.5 cm Right Kidney: 9.6 x 4.3 x 3.6 cm Pancreas: wnl Liver: right posterior lobe hypoechoic area, focal sparing? = 2.8 x 3.7 x 2.1 cm Gallbladder: wnl Evidence for sonographic Brandon's sign: neg CBD: wnl Right Kidney: No hydronephrosis or masses seen IMPRESSION: 1. Nonspecific 3.7 cm area of hypoechogenicity within the posterior segment right lobe of the liver. Differential diagnosis would include an area of focal fatty sparing. However, CT scan is recommended for further evaluation.
== END | disposition home or self-care (01) ==
LOC: RADUSWWP 12:17
PROVIDERS: ATTEND Surgery
DX: K81.1 Chronic cholecystitis (principal)
CPT/HCPCS: 76705

== ENCOUNTER → 2020-07-03 | Outpatient (CLI) | payer MEDICARE ==
--- NOTE | 2020-07-03 18:09 | NM ---
EXAMINATION TYPE: NM hepatobiliary w CCK DATE OF EXAM: 07/03/2020 COMPARISON: Ultrasound 06/30/2020 HISTORY: 49-year-old female K81.8, chronic cholecystitis. TECHNIQUE: After the intravenous administration of 5.0 mCi Tc 99m Mebrofenin hepatobiliary scintigrap hy is performed. Immediate images post injection. FINDINGS: There is satisfactory initial accumulation of tracer by the liver. The gallbladder is visualized wit hin 6 minutes. The small bowel activity is noted within 65 minutes. Following this, CCK was administ ered, patient was injected with 1.4 mcg of Kinevac, and gallbladder ejection fraction is calculated a t 95 %, elevated above the expected range (35-80%). IMPRESSION: 1. No scintigraphic evidence for acute/chronic cholecystitis or biliary dyskinesia. 2. However, the gallbladder ejection fraction is elevated at 95%. Findings may be seen with gallbladd er hyperkinesis.
== END | disposition home or self-care (01) ==
LOC: RADNMMAIN 12:58
PROVIDERS: ATTEND Surgery
DX: K81.1 Chronic cholecystitis (principal)
CPT/HCPCS: 78227; A9537; J2805

== ENCOUNTER → 2020-07-21 | Day surgery (SDC) | payer MEDICARE ==
[2020-07-18 11:44] VITALS: BMI 22.6
[~2020-07-21] MED LIST changes: +BUPIVACAINE (PF) 0.5% 30 ML VIAL SQ ONE; +GENTAMICIN 340 MG in SODIUM CHLORIDE 0.9% 100 ML IVPB PRN; +GLYCOPYRROLATE 0.2 MG/ML 2 ML VIAL ONE; -HEPARIN SODIUM,PORCINE 5,000 UNIT/ML 1 ML VIAL SQ PRN; +HEPARIN SODIUM,PORCINE/PF 5,000 UNIT/0.5 ML SYRINGE SQ PRN; +KETOROLAC 15 MG/ML 1 ML VIAL ONE; +LACTATED RINGERS 1,000 ML IV ONE; -LACTATED RINGERS 1,000 ML IV SCH; +LIDOCAINE 1% INJ 10MG/ML (20 ML MDV) ONE; +MIDAZOLAM 2 MG/2 ML VIAL ONE; +NEOSTIGMINE 1 MG/ML 10 ML VIAL ONE; +PHENYLEPHRINE-0.9% NACL SYG 1,000 MCG/10 ML SYRINGE ONE; +PROPOFOL 10 MG/ML 20 ML VIAL IV ONE; +ROCURONIUM 10 MG/ML (5 ML VIAL) IV ONE; +SUCCINYLCHOLINE CHLORIDE 100 MG/5 ML SYR IV ONE; +fentaNYL (PF) 50 MCG/ML 2 ML AMP ONE
[2020-07-21] MEDS: LACTATED RINGERS 1,000 ML IV SCH ×2 (07:58→12:44)
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
[2020-07-21] MEDS: HYDROmorphone 0.5 MG/0.5 ML SYRINGE IVP PRN ×2 (09:37→10:00)
[2020-07-21 09:42] VITALS: TEMP 97.5
--- NOTE | 2020-07-21 09:47 | P.OP ---
Date of Procedure: 07/21/20 Preoperative Diagnosis: Cholecystitis Postoperative Diagnosis: Cholecystitis Procedure(s) Performed: Laparoscopic cholecystectomy Anesthesia: FRITZ Surgeon: Luis A Lantigua Estimated Blood Loss (ml): 10 Pathology: other (Gallbladder) Condition: stable Disposition: PACU Description of Procedure: The patient was placed on the operating table. The patient received a general endotracheal tube anesthesia. The patients abdomen was prepped and draped in the usual sterile fashion. Through an infraumbilical stab incision, the fascia of the anterior abdominal wall was grasped with a pair of Kochers and then the Veress needle was placed in the peritoneal cavity. Position of the Veress needle was confirmed with positive drop test. The abdomen was then insufflated. After adequate insufflation, the 10 mm trocar was placed in the peritoneal cavity. Following this the laparoscope was placed in the peritoneal cavity. The patient was placed in the head-up, right side up position and then a 5 mm trocar was placed in the right lateral and right subcostal position under direct visualization. A 8 mm trocar was placed in the epigastric position. The gallbladder was grasped in the fundus and infundibulum. Traction on the gallbladder was placed in the lateral and the cephalad positions. The triangle of Calot was visualized.. The cystic duct was bluntly dissected until the union of the cystic duct and common bile duct was seen. A critical view of safety was achieved. The cystic duct was then divided and sealed with the Harmonic scissors. A PDS Endoloop was then placed throughout the cystic duct stump. The cystic artery divided and sealed with the Harmonic scissors. The gallbladder was then removed from the liver bed using Harmonic scissors. The gallbladder was then extracted through the epigastric port site. Operative field was checked for any bleeding spots and Harmonic scissors was used to coagulate the liver bed. The abdomen was irrigated. The trocars were removed. The skin was closed using interrupted 3-0 Vicryl suture. Dermabond dressing were applied. The patient tolerated the procedure well.
[2020-07-21 10:09] VITALS: RESP 18
[2020-07-21 12:00] VITALS: BP 121/74; PULSE 69
== END | disposition home or self-care (01) ==
LOC: OR 07:35
PROVIDERS: ATTEND Surgery
DX: K81.1 Chronic cholecystitis (principal); E03.9 Hypothyroidism, unspecified; Z96.642 Presence of left artificial hip joint; Z96.653 Presence of artificial knee joint, bilateral; Z87.891 Personal history of nicotine dependence; Z80.0 Family history of malignant neoplasm of digestive organs; Z79.890 Hormone replacement therapy; Z79.899 Other long term (current) drug therapy; Z88.8 Allergy status to other drugs, medicaments and biological substances; Z88.1 Allergy status to other antibiotic agents; Z91.030 Bee allergy status
CPT/HCPCS: 88304; 47562; J2250; J1100; J2710; J2405; J2001; J3010; J1885; J2370; J0330; J2704; J1170; J1644

== ENCOUNTER → 2020-11-14 | Outpatient (CLI) | payer MEDICARE ==
[2020-11-14 18:50] LABS: Basophils # (A) 0.06 X 10*3/uL (0.00-0.10); Basophils % (A) 0.9 %; Eosinophils # (A) 0.24 X 10*3/uL (0.04-0.35); Eosinophils % (A) 3.5 %; HCT 44.5 % (37.2-46.3); HGB 14.1 g/dL (12.0-15.0); Lymphocytes # (A) 2.49 X 10*3/uL (0.90-5.00); Lymphocytes % (A) 36.5 %; MCHC 31.7 g/dL (32.0-37.0); MCV 91.4 fL (80.0-97.0); Mean Platelet Volume 11.9 fL (9.5-12.2); Monocytes # (A) 0.55 X 10*3/uL (0.20-1.00); Monocytes % (A) 8.1 %; Neutrophils # (A) 3.46 X 10*3/uL (1.80-7.70); Neutrophils % (A) 50.7 %; Platelet Count 267 X 10*3/uL (140-440); RBC 4.87 X 10*6/uL (4.10-5.20); WBC 6.82 X 10*3/uL (4.50-10.00)
[2020-11-14 21:07] LABS: Hemoglobin A1C 5.4 % (4.0-6.0)
[2020-11-15 04:07] LABS: ALT 38 U/L (8-44); AST 28 U/L (13-35); African American GFR (CKD) 98.2 (60.0-200.0); Albumin/Globulin Ratio 1.59 (1.60-3.17); Alkaline Phosphatase 125 U/L (41-126); Calcium 9.7 mg/dL (8.7-10.3); Carbon Dioxide 28.6 mmol/L (21.6-31.8); Chloride 101 mmol/L (96-109); Globulin 2.9 g/dL (1.6-3.3); Glucose 77 mg/dL (70-110); Iron 127 ug/dL (50-170); Non-African American GFR(CKD) 84.8 (60.0-200.0); Potassium 4.9 mmol/L (3.5-5.5); Sodium 141 mmol/L (135-145); Total Bilirubin 0.5 mg/dL (0.2-1.2); Total Protein 7.5 g/dL (6.2-8.2)
[2020-11-15 05:12] LABS: Folate, Serum >24.0 ng/mL
[2020-11-15 12:12] LABS: APTT 40 Sec(s) (<43); Dilute Russell Viper Venom 37 Sec(s) (<44)
== END | disposition home or self-care (01) ==
LOC: LABWHC1 11:40
PROVIDERS: ATTEND Family Medicine
DX: I10 Essential (primary) hypertension (principal); B89 Unspecified parasitic disease; Z79.899 Other long term (current) drug therapy
CPT/HCPCS: 36415; 80053; 82306; 82607; 82746; 83036; 83540; 84443; 85025; 85613; 85730

== ENCOUNTER → 2020-11-30 | Outpatient (CLI) | payer MEDICARE ==
--- NOTE | 2020-12-01 10:08 | CT ---
EXAMINATION TYPE: CT abdomen pelvis w con DATE OF EXAM: 11/30/2020 COMPARISON: Abdomen CT 10/24/2017 and radiograph 05/25/2018 HISTORY: 50-year-old female K57.33, R1.32, LLQ pain after cholecystectomy in June 2020 TECHNIQUE: Contiguous axial scanning of the abdomen and pelvis following administration of 100 ml Iso pita 300 IV contrast. Delayed images through the kidneys and coronal/sagittal reconstructions perform ed. CT DLP: 542.2 mGycm Automated exposure control for dose reduction was used. FINDINGS: Heart normal size without pericardial effusion. Lung bases clear without pleural effusion. Pectus excavatum deformity noted. No focal liver lesion or biliary ductal dilatation. Portal venous system is patent. Gallbladder surgically absent. No abnormal fluid collection within the cholecystectomy bed. Adrenal glands, kidneys, spleen, and pancreas within normal limits. No dilated small bowel, free fluid, or free air. No mesenteric or retroperitoneal lymphadenopathy. [id number] stool burden. Left sided colonic diverticulosis along with sigmoid diverticulosis. S urgical material along the cecum.. There is a linear density measuring approximately 1.8 cm long within the right side of the pelvis, re charlette to axial image 69 and 70. Bladder is urine distended. Limited assessment of the pelvis due to extensive streak and beam hardeni ng artifact related to the patient's left hip arthroplasty. Numerous pelvic fluid ligaments. Uterus n ot clearly visualized and may be surgically absent or secured by artifact. Neither ovary clearly visu alized. Bones: Pectus excavatum and left hip replacement. No osseous destructive process. IMPRESSION: 1. STATUS POST CHOLECYSTECTOMY. NO ABNORMAL FLUID COLLECTION IN THE CHOLECYSTECTOMY BED. 2. THERE APPEARS TO HAVE BEEN PRIOR SURGERY ALONG THE RIGHT SIDE OF THE COLON. MILD TO MODERATE STOOL BURDEN AND LEFT-SIDED COLONIC DIVERTICULOSIS WITHOUT ACUTE DIVERTICULITIS. 3. THERE IS A 1.8 CM LINEAR DENSITY IN THE RIGHT SIDE OF THE PELVIS (AXIAL IMAGE 69 AND 70). WE FAVOR A LINEAR VASCULAR CALCIFICATION ESPECIALLY WHEN CORRELATED TO THE 05/25/2018 RADIOGRAPH. RECOMMEND A NEW X-RAY TO ENSURE A STABLE APPEARANCE AND EXCLUDE THE POSSIBILITY OF A RETAINED FOREIGN BODY. 4. INCIDENTAL PECTUS EXCAVATUM.
== END | disposition home or self-care (01) ==
LOC: RADCTMAIN 16:33
PROVIDERS: ATTEND Surgery
DX: K57.30 Diverticulosis of large intestine without perforation or abscess without bleeding (principal); M95.4 Acquired deformity of chest and rib; Z98.890 Other specified postprocedural states; Z90.49 Acquired absence of other specified parts of digestive tract
CPT/HCPCS: 74177; Q9967

== ENCOUNTER → 2021-08-20 | Outpatient (CLI) | payer MEDICARE ==
[2021-08-20 22:56] LABS: HCT 42.2 % (37.2-46.3); HGB 13.5 g/dL (12.0-15.0); MCV 93.8 fL (80.0-97.0); Mean Platelet Volume 11.5 fL (9.5-12.2); NRBC Per 100 WBC 0 /100 WBCS (0.0-0.0); Platelet Count 259 X 10*3/uL (140-440); RDW 12.3 % (11.5-14.5); WBC 6.78 X 10*3/uL (4.50-10.00)
[2021-08-20 23:17] LABS: T4, Free (Free Thyroxine) 0.91 ng/dL (0.800-1.800)
[2021-08-20 23:18] LABS: African American GFR (CKD) 91.7 (60.0-200.0); Albumin 4.5 g/dL (3.8-4.9); Albumin/Globulin Ratio 1.8 (1.60-3.17); Anion Gap 8.7 mmol/L (10.00-18.00); BUN/Creat Ratio 16.75 Ratio (12.00-20.00); Blood Urea Nitrogen 14.1 mg/dL (9.0-27.0); Calcium 9.3 mg/dL (8.7-10.3); Globulin 2.5 g/dL (1.6-3.3); Non-African American GFR(CKD) 79.1 (60.0-200.0); Potassium 4.7 mmol/L (3.5-5.5); Total Bilirubin 0.3 mg/dL (0.30-1.20); Total Protein 6.9 g/dL (6.2-8.2)
== END | disposition home or self-care (01) ==
LOC: LABWHC1 15:07
PROVIDERS: ATTEND Family Medicine
DX: Z00.00 Encounter for general adult medical examination without abnormal findings (principal); E03.9 Hypothyroidism, unspecified; E21.0 Primary hyperparathyroidism
CPT/HCPCS: 36415; 80053; 83036; 83540; 84439; 84443; 84481; 85027

== ENCOUNTER → 2021-11-29 | Outpatient (CLI) | payer MEDICARE ==
--- NOTE | 2021-11-30 08:45 | MM ---
Reason for Exam: Screening (asymptomatic). Last mammogram was performed 4 year(s) and 3 month(s) ago. Patient History: Menarche at age 11. First Full-Term at age 15. Left ovary removed at age 28. Right ovary removed at age 28. Hysterectomy at age 28. Postmenopausal. Risk Values: Yoanna 5 year model risk: 0.8%. NCI Lifetime model risk: 6.2%. Prior Study Comparison: 09/04/2017 Bilateral Screening Mammogram, [facility]. Tissue Density: The breast tissue is heterogeneously dense. This may lower the sensitivity of mammography. Findings: Analyzed By CAD. Benign-appearing calcific patient's. There is no suspicious group of microcalcifications or new suspicious mass in either breast. Overall Assessment: Benign, BI-RAD 2 Management: Screening Mammogram of both breasts in 1 year. A clinical breast exam by your physician is recommended on an annual basis and results should be correlated with mammographic findings. Electronically signed and approved by: Zaire Real DO
== END | disposition home or self-care (01) ==
LOC: RADMAMWWP 08:15
PROVIDERS: ATTEND Family Medicine
DX: Z12.31 Encounter for screening mammogram for malignant neoplasm of breast (principal); Z78.0 Asymptomatic menopausal state
CPT/HCPCS: 77063; 77067

== ENCOUNTER → 2022-01-30 | Outpatient (CLI) | payer MEDICARE, OTHER ==
--- NOTE | 2022-01-30 13:26 | NM ---
EXAMINATION TYPE: NM bone 3 phase DATE OF EXAM: 01/30/2022 COMPARISON: NONE HISTORY: Right knee pain Triple phase bone scintigraphy was performed following the injection of 20 mCi Tc 99m MDP. Blood nalini w, blood pool and 5 hours post injection images acquired. FINDINGS: Blood flow: There is symmetrical blood flow through the bilateral lower extremities within the field- of-view. Blood pool: Photopenic defects appear to be within the bilateral knees suggestive for underlying knee prostheses. Some minimal increased uptake appears to be adjacent to the distal right femoral prosthe sis on the medial and lateral sides. Static images: There is increased radiotracer accumulation adjacent to the distal right femoral prost hesis. Remaining prostheses appear normal. IMPRESSION: 1. There is some mild uptake in the region of the distal femoral prosthesis best visualized on the st atic images but may be present medially and laterally on the blood pool images. Increased uptake is n ot identified on the blood flow images. Findings appear suggestive for some loosening.
== END | disposition home or self-care (01) ==
LOC: RADNMMAIN 07:28
PROVIDERS: ATTEND Orthopaedic Surgery
DX: T84.030A Mechanical loosening of internal right hip prosthetic joint, initial encounter (principal); Z47.1 Aftercare following joint replacement surgery; Z96.651 Presence of right artificial knee joint; M25.361 Other instability, right knee
CPT/HCPCS: 78315; A9503

== ENCOUNTER → 2022-10-01 | Outpatient (CLI) | payer MEDICARE ==
[2022-10-01 20:17] LABS: ALT 15 U/L (8-44); AST 17 U/L (13-35); Albumin 4.5 d/dL (3.8-4.9); Albumin/Globulin Ratio 1.88 Ratio (1.60-3.17); Alkaline Phosphatase 87 U/L (41-126); BUN/Creat Ratio 13.88 Ratio (12.00-20.00); Bilirubin, Conjugated <0.20 mg/dL (0.20-0.40); Bilirubin,Unconjugated >0.10 mg/dL (0.20-1.00); Blood Urea Nitrogen 11.1 mg/dL (9.0-27.0); Calcium 9.8 mg/dL (8.7-10.3); Carbon Dioxide 29.4 mmol/L (21.6-31.8); Chloride 104 mmol/L (96-109); Chol/HDL Ratio 2.69 Ratio; Globulin 2.4 d/dL (1.6-3.3); Glucose 97 mg/dL (70-110); LDL Cholesterol,Calculated 78.6 mg/dL (0.0-131.0); Potassium 4.8 mmol/L (3.5-5.5); Sodium 142 mmol/L (135-145); Total Bilirubin 0.3 mg/dL (0.3-1.2); Total Protein 6.9 d/dL (6.2-8.2); VLDL Calculation 19.26 mg/dL (5.00-40.00)
[2022-10-01 22:10] LABS: Basophils # (A) 0.04 X 10*3/uL (0.00-0.10); Basophils % (A) 0.7 %; Eosinophils # (A) 0.16 X 10*3/uL (0.04-0.35); Eosinophils % (A) 2.9 %; HCT 42.6 % (37.2-46.3); HGB 13.3 d/dL (12.0-15.0); Lymphocytes # (A) 2.62 X 10*3/uL (0.90-5.00); MCH 29.1 pg (27.0-32.0); MCHC 31.2 d/dL (32.0-37.0); MCV 93.2 FL (80.0-97.0); Mean Platelet Volume 11.8 FL (9.5-12.2); Monocytes # (A) 0.51 X 10*3/uL (0.20-1.00); Monocytes % (A) 9.2 %; NRBC Per 100 WBC 0 X 10*3/uL (0.00-0.01); Neutrophils # (A) 2.23 X 10*3/uL (1.80-7.70); Platelet Count 263 X 10*3/uL (140-440); RBC 4.57 X 10*6/uL (4.10-5.20); RDW 12.4 % (11.5-14.5); WBC 5.57 X 10*3/uL (4.50-10.00)
== END | disposition home or self-care (01) ==
LOC: LABWHC1 11:44
PROVIDERS: ATTEND Nurse Practitioner Family
DX: E11.8 Type 2 diabetes mellitus with unspecified complications (principal); E78.2 Mixed hyperlipidemia
CPT/HCPCS: 36415; 80048; 80061; 80076; 83036; 85025

== ENCOUNTER → 2023-09-25 | Outpatient (CLI) | payer MEDICARE ==
--- NOTE | 2023-09-25 15:19 | MM ---
Reason for Exam: Clinical finding. Last mammogram was performed 1 year(s) and 10 month(s) ago. Indicated Problems: Lump or thickening of the left side (size 20) for 2 Week(s). Patient History: Menarche at age 11. First Full-Term at age 15. Left ovary removed at age 28. Right ovary removed at age 28. Hysterectomy at age 28. Postmenopausal. Patient has history of breast feeding. Risk Values: Yoanna 5 year model risk: 0.8%. NCI Lifetime model risk: 6.0%. Prior Study Comparison: 09/04/2017 Bilateral Screening Mammogram, [facility]. 11/29/2021 Bilateral MG 3D screening mammo w/cad, [facility]. Tissue Density: The breasts are heterogeneously dense, which may obscure small masses. Findings: Analyzed By CAD. No evidence for mass or distortion. No suspicious mitral calcifications present. Ultrasound at the site of clinical concern left breast. Overall Assessment: Incomplete: need additional imaging evaluation, BI-RAD 0 Management: Diagnostic Breast Ultrasound of the left breast. . Results were given to the patient verbally at the time of exam. Patient should continue monthly self-breast exams. A clinical breast exam by your physician is recommended on an annual basis. This exam should not preclude additional follow-up of suspicious palpable abnormalities. Note on Yoanna scores and lifetime risk: 1. A Yoanna score greater than 3% is considered moderate risk. If this is the case, consider specialist referral to assess eligibility for a risk reducing agent. 2. If overall lifetime risk for the development of breast cancer is 20% or higher, the patient may qualify for future screening with alternating mammogram and breast MRI. Electronically signed and approved by: Reginald Davison M.D. Radiologis
--- NOTE | 2023-09-25 15:36 | USB ---
Reason for Exam: Clinical finding. Patient History: Menarche at age 11. First Full-Term at age 15. Left ovary removed at age 28. Right ovary removed at age 28. Hysterectomy at age 28. Postmenopausal. Patient has history of breast feeding. Risk Values: Yoanna 5 year model risk: 0.8%. NCI Lifetime model risk: 6.0%. Technique: Method: Targeted. Prior Study Comparison: 09/04/2017 Bilateral Screening Mammogram, [facility]. 11/29/2021 Bilateral MG 3D screening mammo w/cad, [facility]. Findings: The area of palpable concern of the left breast, the axilla of the left breast and the retroareolar of the left breast were scanned. Small simple cyst at the site of clinical concern measuring 4 x 3 mm a left 8:00 position 3 cm from the nipple. No solid masses detected.. Manage clinically. Overall Assessment: Benign, BI-RAD 2 Management: Screening Mammogram of both breasts in 1 year. A clinical breast exam by your physician is recommended on an annual basis and results should be correlated with mammographic findings. This exam should not preclude additional follow-up of suspicious palpable abnormalities. Results were given to the patient verbally at the time of exam. Electronically signed and approved by: Reginald Davison M.D. Radiologis
== END | disposition home or self-care (01) ==
LOC: RADMAMWWP 14:35
PROVIDERS: ATTEND Family Medicine
DX: R92.333 Mammographic heterogeneous density, bilateral breasts (principal); N63.10 Unspecified lump in the right breast, unspecified quadrant; N63.20 Unspecified lump in the left breast, unspecified quadrant; Z78.0 Asymptomatic menopausal state
CPT/HCPCS: 77066; 76642; G0279; 77062

== ENCOUNTER → 2023-12-09 | Outpatient (CLI) | payer OTHER ==
--- NOTE | 2023-12-09 17:45 | XR ---
EXAMINATION TYPE: XR Hip Complete LT DATE OF EXAM: 12/09/2023 5:21 PM CLINICAL INDICATION: Female, 53 years old with history of M25.552,M25.572,M25.561; COMPARISON: None. TECHNIQUE: XR Hip Complete LT; hip was examined in the frontal and lateral projections FINDINGS: Post arthroplasty changes, hardware is intact, alignment is appropriate. No evidence of fra cture. No evidence of any acute osseous pathology or joint dislocation. Pelvic fullness are present. IMPRESSION: Hip arthroplasty with hardware intact and in appropriate alignment. No acute fracture.
--- NOTE | 2023-12-09 18:19 | XR ---
EXAMINATION TYPE: XR foot limited LT, XR ankle limited LT DATE OF EXAM: 12/09/2023 5:21 PM CLINICAL INDICATION: Female, 53 years old with history of M25.552,M25.572,M25.561; [facility] COMPARISON: None TECHNIQUE: XR foot limited LTexamined in the AP, oblique, and lateral projections. XR ankle limited LT frontal and lateral views. FINDINGS/IMPRESSION: 1. No acute fracture of the first digit distal phalanx base with intra-articular extension to the in terphalangeal joint. There is associated soft tissue swelling. 2. No additional fractures visualized.
--- NOTE | 2023-12-09 18:21 | XR ---
EXAMINATION TYPE: XR knee limited RT DATE OF EXAM: 12/09/2023 5:21 PM CLINICAL INDICATION: Female, 53 years old with history of M25.552,M25.572,M25.561; [facility] COMPARISON: None. TECHNIQUE: XR knee limited RT; examined in Frontal, lateral and oblique projections. FINDINGS: Status post total knee arthroplasty with revision changes with hardware in appropriate al ignment and intact. No evidence of fracture. IMPRESSION: Status post total knee arthroplasty changes with hardware intact and appropriate alignment. No fractu res identified.
== END | disposition home or self-care (01) ==
LOC: RADXRMAIN 16:35
PROVIDERS: ATTEND Family Medicine
DX: M79.89 Other specified soft tissue disorders (principal); M25.552 Pain in left hip; M25.561 Pain in right knee; Z96.642 Presence of left artificial hip joint; Z96.651 Presence of right artificial knee joint
CPT/HCPCS: 73502

== ENCOUNTER → 2024-03-22 | Outpatient (CLI) | payer MEDICARE, OTHER ==
--- NOTE | 2024-03-22 13:45 | CTL ---
EXAMINATION TYPE: CT Low Dose Lung DATE OF EXAM ORDERED: 03/22/2024 COMPARISON: No direct comparisons. CLINICAL INDICATION: Female, 53 years old with history of Z87.891 hx smoking; PHH, PERSONAL HX OF SIENNA OTINE DEPENDENCE 1PPD x 3O YEARS NOT CURRENT SMOKER FOR 11 YEARS, Lung cancer screening, History of S moking/tobacco use. TECHNIQUE: Low dose computed tomography scan was performed through the chest at 1 mm thick sections a nd reconstructed images in multiple planes at 1 mm and [address] DLP: 85.[address] CTDI: 2.1 mGy Automated exposure control for dose reduction was used. CT DIAGNOSTIC QUALITY: Satisfactory FINDINGS: Nodules: Middle lobe 2.5 mm pulmonary nodule (series 4, image 176). Lingular 3 mm pulmonary nodule (series 4, image 174). Left lower lobe 2.8 mm pulmonary nodule (series 4, image 212). LUNGS: COPD: Severity: None Fibrosis: Severity: None Lymph nodes: None Other findings: Mild biapical pleural-parenchymal scarring. RIGHT PLEURAL SPACE: Effusion: None Calcification: None Thickening: None Pneumothorax: None LEFT PLEURAL SPACE: Effusion: None Calcification: None Thickening: None Pneumothorax: None HEART: Heart Size: Normal Coronary Calcification: None Pericardial Effusion: None OTHER FINDINGS: Upper abdomen: None Bony thorax: None Supraclavicular region: None Other: None IMPRESSION: Few pulmonary nodules measuring [address] LUNG RAD AND [address] CHEST RECOMMENDATION: Lung-Rad 2 Benign Appearance or Behavior: Continue annual sc reening with LDCT in 12 months. S Modifier (other clinically significant findings): None [facility], , 03/22/2024 1:43 PM
== END | disposition home or self-care (01) ==
LOC: RADCTMAIN 12:53
PROVIDERS: ATTEND Family Medicine
DX: Z12.2 Encounter for screening for malignant neoplasm of respiratory organs (principal); R91.8 Other nonspecific abnormal finding of lung field; Z87.891 Personal history of nicotine dependence
CPT/HCPCS: 71271

== ENCOUNTER → 2024-07-05 | Outpatient (CLI) | payer MEDICARE ==
--- NOTE | 2024-07-05 10:13 | US ---
EXAMINATION TYPE: US thyroid st tissue head/neck DATE OF EXAM: 07/05/2024 COMPARISON: US(08/29/2015) CLINICAL INDICATION: Female, 53 years old with history of E03.9 HYPOTHYROIDISM, UNSPECIFIED; difficulty swallowing, hypothyroidism TECHNIQUE: Grayscale and color Doppler imaging of the thyroid gland. FINDINGS: GLAND SIZE: Right Lobe: 3.6x0.5x1.6 cm Overall Parenchyma: homogeneous, increased vascularity Left Lobe: 4.4x0.4x1.7 cm Overall Parenchyma: homogeneous, increased vascularity Isthmus Thickness: 0.2 cm NODULES RIGHT: # of nodules measured on right: 0 LEFT: # of nodules measured on left: 0 ISTHMUS: # of nodules measured in the isthmus: 0 Bilateral neck scanned, no evidence of lymphadenopathy. IMPRESSION: 1. No thyroid nodules identified. 2. Increased vascularity of the thyroid gland correlate for thyroiditis. TI-RADS assessment score and recommendation for follow-up based on appropriate scoring and treatment protocols. TR3: If nodule size is ? 2.5 cm, FNA is recommended. If nodule size is ? 1.5 cm, follow-up imaging at 1, 3, and 5 years is recommended. TR4: If nodule size is ? 1.5 cm, FNA is recommended. If nodule size is ? 1.0 cm, follow-up imaging at 1, 2, 3, and 5 years is recommended. TR5: If nodule size is ? 1.0 cm, FNA is recommended. If nodule size is ? 0.5 cm, annual follow-up for up to 5 years is recommended. [email or web address] [facility], , 07/05/2024 10:10 AM
== END | disposition home or self-care (01) ==
LOC: RADUSWWP 09:41
PROVIDERS: ATTEND Internal Medicine Endocrinology, Diabetes & Metabolism
DX: E03.9 Hypothyroidism, unspecified (principal); R13.10 Dysphagia, unspecified
CPT/HCPCS: 76536

== ENCOUNTER → 2024-07-05 | Outpatient (CLI) | payer MEDICARE ==
[2024-07-05 14:54] LABS: HCT 41.4 % (37.2-46.3); HGB 13.1 g/dL (12.0-15.0); MCH 28.9 pg (27.0-32.0); MCHC 31.6 g/dL (32.0-37.0); MCV 91.4 FL (80.0-97.0); Mean Platelet Volume 10.6 FL (9.5-12.2); NRBC Per 100 WBC 0 X 10*3/uL (0.00-0.01); Platelet Count 357 X 10*3/uL (140-440); RBC 4.53 X 10*6/uL (4.10-5.20); RDW 12.3 % (11.5-14.5); WBC 4.48 X 10*3/uL (4.50-10.00)
[2024-07-05 15:23] LABS: Thyroid Peroxidase Antibodies 32.3 U/mL (0.0-33.0)
[2024-07-05 15:36] LABS: ALT 63 U/L (8-44); AST 28 U/L (13-35); Albumin 4.1 g/dL (3.8-4.9); Albumin/Globulin Ratio 1.58 Ratio (1.60-3.17); Alkaline Phosphatase 134 U/L (41-126); BUN/Creat Ratio 16.75 Ratio (12.00-20.00); Blood Urea Nitrogen 13.4 mg/dL (9.0-27.0); Calcium 9.3 mg/dL (8.7-10.3); Carbon Dioxide 27.4 mmol/L (21.6-31.8); Chloride 105 mmol/L (96-109); Chol/HDL Ratio 3.13 Ratio; Globulin 2.6 g/dL (1.6-3.3); Glucose 98 mg/dL (70-110); LDL Cholesterol,Calculated 98.1 mg/dL (0.0-131.0); Potassium 4.7 mmol/L (3.5-5.5); Sodium 143 mmol/L (135-145); T4, Free (Free Thyroxine) 1.01 ng/dL (0.80-1.80); Total Bilirubin 0.5 mg/dL (0.3-1.2); Total Protein 6.7 g/dL (6.2-8.2); VLDL Calculation 16.34 mg/dL (5.00-40.00)
[2024-07-05 18:43] LABS: Microalbumin Creatinine Ratio <10 mg/g Cr (0-30)
== END | disposition home or self-care (01) ==
LOC: LABWHC1 10:04
PROVIDERS: ATTEND Nurse Practitioner
DX: E03.9 Hypothyroidism, unspecified (principal); E55.9 Vitamin D deficiency, unspecified
CPT/HCPCS: 36415; 80053; 80061; 82043; 82306; 82533; 82570; 82607; 83036; 84439; 84443; 84480; 85027; 86376

== ENCOUNTER → 2024-09-21 | Outpatient (CLI) | payer MEDICARE ==
[2024-09-22 02:28] LABS: T4, Free (Free Thyroxine) 1.94 ng/dL (0.80-1.80)
== END | disposition home or self-care (01) ==
LOC: LABWHC1 16:04
PROVIDERS: ATTEND Nurse Practitioner
DX: E03.9 Hypothyroidism, unspecified (principal); E55.9 Vitamin D deficiency, unspecified; R53.83 Other fatigue
CPT/HCPCS: 36415; 84439; 84443; 84480